=== PATIENT | female | born 1975 | race Caucasian/White ===

== ENCOUNTER 2017-03-24 02:44 | Observation (INO) | payer MEDICAID ==
[2017-03-24] MEDS ORDERED: Albuterol-Ipratrop 3 mg / 0.5 (3 ml) UD INH STA (03:12)
[2017-03-24 03:44] LABS: MEAN CORPUSCULAR HEMOGLOBIN 17.9 pg (27.0-31.0); NRBC % 0.1 % (0.0-2.0)
--- NOTE | 2017-03-24 03:48 | C.PDOC ---
History Of Present Illness <Alejandra Spann - Last Filed: 03/24/17 07:00> <Chayo Contreras - Last Filed: 03/24/17 08:45> 41 year old female with PMhx of HTN presents to the ED for evaluation of SOB and coughing that started earlier today while she was at her home. Patient states that when she coughs she feels SOB and also feels chest tightness. Patient states her SOB worsens when she lays down. Patient denies fever, chills , nausea, vomit, diarrhea, weakness, numbness, headache. (Alejandra Spann) History Per: Patient History/Exam Limitations: no limitations Onset/Duration Of Symptoms: Days Current Symptoms Are (Timing): Still Present Location Of Pain: Throat Sick Contacts (Context): None Associated Symptoms: Cough Recent travel outside of the [place]: No Additional History Per: Patient <Alejandra Spann - Last Filed: 03/24/17 07:00> <Chayo Contreras - Last Filed: 03/24/17 08:45> Chief Complaint (Nursing): Cough, Cold, Congestion Past Medical History Reviewed: Historical Data, Nursing Documentation, Vital Signs - Medical History PMH: HTN Surgical History: No Surg Hx Family History: States: Unknown Family Hx - Social History Hx Tobacco Use: Yes Hx Alcohol Use: Yes Hx Substance Use: No - Immunization History Hx Tetanus Toxoid Vaccination: No Hx Influenza Vaccination: No Hx Pneumococcal Vaccination: No <Alejandra Spann - Last Filed: 03/24/17 07:00> Vital Signs: Last Vital Signs Temp 98.4 F 03/24/17 08:19 Pulse 84 03/24/17 08:18 Resp 18 03/24/17 08:18 BP 185/89 H 03/24/17 08:18 Pulse Ox 99 03/24/17 08:18 Review Of Systems Constitutional: Negative for: Fever, Chills Cardiovascular: Positive for: Chest Pain. Negative for: Palpitations Respiratory: Positive for: Shortness of Breath. Negative for: Cough Gastrointestinal: Negative for: Nausea, Vomiting, Abdominal Pain Musculoskeletal: Negative for: Back Pain Skin: Negative for: Rash Neurological: Negative for: Weakness, Numbness <Alejandra Spann - Last Filed: 03/24/17 07:00> Physical Exam - Physical Exam Appears: Non-toxic, No Acute Distress, Other (Obese) Skin: Normal Color, Warm, Dry Head: Atraumatic, Normacephalic Eye(s): bilateral: Normal Inspection Nose: No Discharge, No Deformity Oral Mucosa: Moist Neck: Normal ROM, Supple Chest: Symmetrical Cardiovascular: Rhythm Regular, No Murmur Respiratory: Normal Breath Sounds, No Rales, No Rhonchi, No Wheezing Gastrointestinal/Abdominal: Soft, No Tenderness, No Guarding, No Rebound Extremity: Normal ROM, No Tenderness, Capillary Refill (< 2 seconds), No Deformity, No Swelling Pulses: Left Dorsalis Pedis: Normal, Right Dorsalis Pedis: Normal Neurological/Psych: Oriented x3, Normal Speech, Normal Cognition <Alejandra Spann - Last Filed: 03/24/17 07:00> ED Course And Treatment - Laboratory Results Result Diagrams: 03/24/17 03:38 03/24/17 03:38 ECG: Interpreted By Me, Viewed By Me ECG Rhythm: Sinus Rhythm Interpretation Of ECG: flipped Ts in lead V4 to V6 and also in lead I and in aVL Rate From EC O2 Sat by Pulse Oximetry: 95 (On RA) Pulse Ox Interpretation: Normal - Radiology CXR: Interpreted by Me, Viewed By Me CXR Interpretation: Yes: Cardiomegaly, Other (increased vascular marking suggestive of CHF). No: Infiltrates <Alejandra Spann - Last Filed: 03/24/17 07:00> - Laboratory Results Result Diagrams: 03/24/17 03:38 03/24/17 03:38 <Chayo Contreras - Last Filed: 03/24/17 08:45> Progress <Alejandra Spann - Last Filed: 03/24/17 07:00> - Data Reviewed Data Reviewed: Lab, Diagnostic imaging, EKG, Old records <Chayo Contreras - Last Filed: 03/24/17 08:45> - Re-Evaluation Re-evaluation Note: 03/24/17 08:43 APPEARS COMFORTABLE NARD. PS FEELS BETTER S/P LASIX. PS NEW ONSET ORTHOPNEA X 2 WEEKS. PMD @ [facility] D/W DR Puja [facility]LE TURNER WILL ADMIT (Chayo Contreras) Medical Decision Making <Alejandra Spann - Last Filed: 03/24/17 07:00> <Chayo Contreras - Last Filed: 03/24/17 08:45> Medical Decision Making: Impression: SOB Plan: * EKG * CXR * Labs * Duoneb 3ml INH Pt with morbid obesity now with acute onset of SOB.Pt has CXR,hx,labs sugg of mild component of CHF and may well have a pulmonary embolus.If CHF alone pt can likely go home but if VQ is positive would admit for further mgmt of both conditions.Pts body habitus precludes her use of the CT scanner (Alejandra Spann) Disposition <Alejandra Spann - Last Filed: 03/24/17 07:00> Counseled Patient/Family Regarding: Studies Performed, Diagnosis - Disposition Disposition Time: 08:44 - POA Present On Arrival: Poor Glycemic Control <Chayo Contreras - Last Filed: 03/24/17 08:45> - Disposition Disposition: HOSPITALIZED Condition: STABLE Forms: [facility] (Emirati) - Clinical Impression Clinical Impression: New onset of congestive heart failure - Scribe Statement The provider has reviewed the documentation as recorded by the Scribe <Alejandra Spann - Last Filed: 03/24/17 07:00> <Chayo Contreras - Last Filed: 03/24/17 08:45> - Scribe Statement Jorge Santacruz All medical record entries made by the Scribe were at my direction and personally dictated by me. I have reviewed the chart and agree that the record accurately reflects my personal performance of the history, physical exam, medical decision making, and the department course for this patient. I have also personally directed, reviewed, and agree with the discharge instructions and disposition. (Alejandra Spann) Decision To Admit <Alejandra Spann - Last Filed: 03/24/17 07:00> - Pt Status Changed To: Hospital Disposition Of: Observation - . Bed Request Type: Telemetry Admitting Physician: Vinay Delvalle <hCayo Contreras - Last Filed: 03/24/17 08:45> - . Patient Diagnosis: New onset of congestive heart failure
[2017-03-24 03:51] LABS: BASO # 0.1 K/uL (0.0-0.2); BASO % 0.6 % (0.0-2.0); EOS # 0.8 K/uL (0.0-0.7); LYMPH % 16.9 % (20.0-40.0); MEAN CELL VOLUME 60.1 fL (81.0-99.0); MEAN CORPUSCULAR HGB CONC 29.8 g/dL (33.0-37.0); MEAN PLATELET VOLUME 8.7 fL (7.2-11.7); MONO # 0.7 K/uL (0.0-0.8); MONO % 5.7 % (0.0-10.0); NEUT # 8.4 K/uL (1.8-7.0); NEUT % 69.8 % (50.0-75.0); RBC 4.45 Mil/uL (3.80-5.20); RED CELL DISTRIBUTION WIDTH 20.6 % (11.5-14.5); WHITE BLOOD COUNT 12.1 K/uL (4.8-10.8)
[2017-03-24 03:55] LABS: ALB/GLOB RATIO 1.1 (1.0-2.1); ALBUMIN 3.8 g/dL (3.5-5.0); ALT/SGPT 28 U/L (9-52); AST/SGOT 24 U/L (14-36); BLOOD UREA NITROGEN 16 mg/dL (7-17); CALCIUM 8.8 mg/dl (8.6-10.4); GFR AFRICAN-AMERICAN > 60; GFR NON-AFRICAN AMERICAN > 60
[2017-03-24] MEDS ORDERED: Potassium Chloride 20 mEq/15 ml LIQ UD PO STA (03:59)
[2017-03-24 04:08] LABS: B-TYPE NATRIURETIC PEPTIDE 1110 pg/mL (0-450)
[2017-03-24] MEDS ORDERED: Potassium Chloride 20 mEq/15 ml LIQ UD ONE (04:14)
--- NOTE | 2017-03-24 08:15 | NM ---
EXAM: NM Lung Perfusion and Ventilation Scan CLINICAL HISTORY: 41 years old, female; Signs and symptoms; Shortness of breath; Additional info: R/O pe TECHNIQUE: Nuclear Medicine ventilation and perfusion images of the lungs were obtained in multiple projections following inhalation of and injection of Tc99m MAA. Radiopharmaceuticals: Xenon 133 18 mCi and 4 mCi of technetium 99m MAA were administered. COMPARISON: No relevant prior studies available. FINDINGS: Ventilation: There is bilateral air trapping on the ventilation images. Perfusion: Unremarkable. No perfusion defects. IMPRESSION: Low probability for pulmonary embolus.
--- NOTE | 2017-03-24 10:20 | RAD ---
HISTORY: sob COMPARISON: No prior. FINDINGS: LUNGS: Suboptimal study due to patient's body habitus and portable technique. Possible mild pulmonary vascular congestion. PLEURA: No significant pleural effusion identified, no pneumothorax apparent. CARDIOVASCULAR: Normal. OSSEOUS STRUCTURES: No significant abnormalities. VISUALIZED UPPER ABDOMEN: Normal. OTHER FINDINGS: None. IMPRESSION: Suboptimal study due to patient's body habitus and portable technique. Possible mild pulmonary vascular congestion.
--- NOTE | 2017-03-24 17:10 | CP.PCM.CON ---
History of Present Illness - History of Present Illness History of Present Illness: 41 year old female with a history of menorrhagia and chronic anemia, admitted with cough and shortness of breath. The patient notes to chronic menorrhagia and passing vaginal blood clots. She does follow with a HAND FLESHER but notes her menorrhagia has been difficult to control. She does feel fatigued and has dyspnea with stairs. She denies fevers and chills. Past medical history: Menorrhagia, anemia Past surgical history: Cholecystectomy, Family history: Denies hematologic and oncologic problems Social history: Smokes 5 cigarettes daily, denies alcohol and illicit drug use. Allergies: NKDA Review of systems: All remaining review of systems including HEENT, cardiovascular, respiratory, gastrointestinal, genitourinary, musculoskeletal, dermatologic, neurologic, and psychiatric are negative unless mentioned in the HPI. Past Patient History - Past Social History Smoking Status: Light Smoker < 10 Cigarettes Daily - CARDIAC Hx Hypertension: Yes - PSYCHIATRIC Hx Substance Use: No - SURGICAL HISTORY Hx Section: Yes (X2) - ANESTHESIA Hx Anesthesia: Yes Hx Anesthesia Reactions: No Meds Allergies/Adverse Reactions: Allergies Allergy/AdvReac Type Severity Reaction Status Date / Time shrimp Allergy Verified 03/24/17 11:20 - Medications Medications: Current Medications Amlodipine Besylate (Norvasc) 5 mg PO DAILY [facility] Ferric Sodium Gluconate Complex (Ferrlecit) 125 mg IVPB DAILY [facility] Stop: 03/31/17 16:16 Furosemide (Lasix) 40 mg IVP DAILY [facility] Potassium Chloride (Potassium Chloride 10 Meq/100 Ml) 10 meq in 100 mls @ 100 mls/hr IVPB ONCE ONE Stop: 03/24/17 17:25 Lisinopril (Zestril) 10 mg PO DAILY [facility] Pneumococcal Polyvalent Vaccine (Pneumovax 23 Vaccine) 0.5 ml IM .ONCE ONE Stop: 03/25/17 10:01 Physical Exam - Head Exam Head Exam: ATRAUMATIC - Eye Exam Eye Exam: Normal appearance - ENT Exam ENT Exam: Mucous Membranes Dry - Respiratory Exam Respiratory Exam: NORMAL BREATHING PATTERN - Cardiovascular Exam Cardiovascular Exam: +S1, +S2 - GI/Abdominal Exam GI & Abdominal Exam: Normal Bowel Sounds Results - Vital Signs Recent Vital Signs: Last Vital Signs Temp 98.3 F 03/24/17 16:00 Pulse 93 H 03/24/17 16:00 Resp 20 03/24/17 16:00 BP 207/122 H 03/24/17 16:00 Pulse Ox 95 03/24/17 16:00 - Labs Result Diagrams: 03/24/17 03:38 03/24/17 03:38 Labs: Laboratory Results - last 24 hr 03/24/17 03/24/17 03/24/17 03:38 03:38 03:38 WBC 12.1 H RBC 4.45 Hgb 8.0 L Hct 26.8 L MCV 60.1 L MCH 17.9 L MCHC 29.8 L RDW 20.6 H Plt Count 424 H MPV 8.7 Neut % (Auto) 69.8 Lymph % (Auto) 16.9 L [place] % (Auto) 5.7 Eos % (Auto) 7.0 H Baso % (Auto) 0.6 Neut # (Auto) 8.4 H Lymph # (Auto) 2.0 [place] # (Auto) 0.7 Eos # (Auto) 0.8 H Baso # (Auto) 0.1 Differential Comment D-Dimer, Quantitative 2201 H Sodium 139 Potassium 2.9 L Chloride 103 Carbon Dioxide 27 Anion Gap 12 BUN 16 Creatinine 1.0 Est GFR ( Amer) > 60 Est GFR (Non-Af Amer) > 60 Random Glucose 122 H Calcium 8.8 Total Bilirubin 0.4 AST 24 ALT 28 Alkaline Phosphatase 63 Troponin I 0.0400 NT-Pro-B Natriuret Pep 1110 H Total Protein 7.1 Albumin 3.8 Globulin 3.3 Albumin/Globulin Ratio 1.1 Assessment & Plan (1) Anemia Assessment and Plan: will check ferritin, retic count, b12, folate likely iron deficiency given menorrhagia will start empirically on IV iron Thank you for this interesting consult. Status: Acute
[2017-03-24 17:25] LABS: ALB/GLOB RATIO 1.1 (1.0-2.1); ALBUMIN 3.9 g/dL (3.5-5.0); ALT/SGPT 25 U/L (9-52); AST/SGOT 26 U/L (14-36); BLOOD UREA NITROGEN 16 mg/dL (7-17); CALCIUM 9.3 mg/dl (8.6-10.4); GFR AFRICAN-AMERICAN > 60; GFR NON-AFRICAN AMERICAN > 60
--- NOTE | 2017-03-24 18:10 | CP.PCM.HP ---
Past Patient History - Past Social History Smoking Status: Light Smoker < 10 Cigarettes Daily - CARDIAC Hx Hypertension: Yes - PSYCHIATRIC Hx Substance Use: No - SURGICAL HISTORY Hx Section: Yes (X2) - ANESTHESIA Hx Anesthesia: Yes Hx Anesthesia Reactions: No Meds Allergies/Adverse Reactions: Allergies Allergy/AdvReac Type Severity Reaction Status Date / Time shrimp Allergy Verified 03/24/17 11:20 Physical Exam - Constitutional Appears: Well - Head Exam Head Exam: ATRAUMATIC, NORMAL INSPECTION, NORMOCEPHALIC - Eye Exam Eye Exam: EOMI, Normal appearance, PERRL Pupil Exam: NORMAL ACCOMODATION, PERRL - ENT Exam ENT Exam: Mucous Membranes Moist, Normal Exam - Neck Exam Neck exam: Positive for: Normal Inspection - Respiratory Exam Respiratory Exam: Decreased Breath Sounds - Cardiovascular Exam Cardiovascular Exam: REGULAR RHYTHM, +S1, +S2 - GI/Abdominal Exam GI & Abdominal Exam: Diminished Bowel Sounds, Soft - Rectal Exam Rectal Exam: Deferred Results - Vital Signs Recent Vital Signs: Last Vital Signs Temp 98.3 F 03/24/17 16:00 Pulse 93 H 03/24/17 16:00 Resp 20 03/24/17 16:00 BP 207/122 H 03/24/17 16:00 Pulse Ox 95 03/24/17 16:00 - Labs Result Diagrams: 03/24/17 03:38 03/24/17 16:37 Labs: Laboratory Results - last 24 hr 03/24/17 03/24/17 03/24/17 03:38 03:38 03:38 WBC 12.1 H RBC 4.45 Hgb 8.0 L Hct 26.8 L MCV 60.1 L MCH 17.9 L MCHC 29.8 L RDW 20.6 H Plt Count 424 H MPV 8.7 Neut % (Auto) 69.8 Lymph % (Auto) 16.9 L [place] % (Auto) 5.7 Eos % (Auto) 7.0 H Baso % (Auto) 0.6 Neut # (Auto) 8.4 H Lymph # (Auto) 2.0 [place] # (Auto) 0.7 Eos # (Auto) 0.8 H Baso # (Auto) 0.1 Differential Comment D-Dimer, Quantitative 2201 H Sodium 139 Potassium 2.9 L Chloride 103 Carbon Dioxide 27 Anion Gap 12 BUN 16 Creatinine 1.0 Est GFR ( Amer) > 60 Est GFR (Non-Af Amer) > 60 Random Glucose 122 H Calcium 8.8 Total Bilirubin 0.4 AST 24 ALT 28 Alkaline Phosphatase 63 Troponin I 0.0400 NT-Pro-B Natriuret Pep 1110 H Total Protein 7.1 Albumin 3.8 Globulin 3.3 Albumin/Globulin Ratio 1.1 03/24/17 16:37 WBC RBC Hgb Hct MCV MCH MCHC RDW Plt Count MPV Neut % (Auto) Lymph % (Auto) [place] % (Auto) Eos % (Auto) Baso % (Auto) Neut # (Auto) Lymph # (Auto) [place] # (Auto) Eos # (Auto) Baso # (Auto) Differential Comment D-Dimer, Quantitative Sodium 140 Potassium 3.3 L Chloride 100 Carbon Dioxide 29 Anion Gap 13 BUN 16 Creatinine 1.0 Est GFR ( Amer) > 60 Est GFR (Non-Af Amer) > 60 Random Glucose 104 Calcium 9.3 Total Bilirubin 0.4 AST 26 ALT 25 Alkaline Phosphatase 67 Troponin I 0.0400 NT-Pro-B Natriuret Pep Total Protein 7.5 Albumin 3.9 Globulin 3.6 Albumin/Globulin Ratio 1.1
[2017-03-24] MEDS: Ferric Sodium Gluconat Complex 62.5 mg/5 ml Vial IVPB SCH (19:28)
[2017-03-24] MEDS ORDERED: Potassium Chloride 20 mEq ER Tab PO ONE (21:37)
[2017-03-24] MEDS ORDERED: Enoxaparin 30 mg Syringe SC SCH (22:00)
[2017-03-25 01:00] VITALS: O2SAT 97
[2017-03-25 08:54] LABS: BASO # 0.1 K/uL (0.0-0.2); BASO % 0.8 % (0.0-2.0); EOS # 0.9 K/uL (0.0-0.7); EOS % 8.7 % (0.0-4.0); HEMOGLOBIN 9.1 g/dL (11.0-16.0); LYMPH # 1.9 K/uL (1.0-4.3); LYMPH % 18.7 % (20.0-40.0); MEAN CORPUSCULAR HEMOGLOBIN 18.4 pg (27.0-31.0); MEAN CORPUSCULAR HGB CONC 30.6 g/dL (33.0-37.0); MEAN PLATELET VOLUME 8.8 fL (7.2-11.7); MONO # 0.6 K/uL (0.0-0.8); MONO % 6.5 % (0.0-10.0); NEUT # 6.5 K/uL (1.8-7.0); NEUT % 65.3 % (50.0-75.0); NRBC % 0.1 % (0.0-2.0); RBC 4.94 Mil/uL (3.80-5.20); RED CELL DISTRIBUTION WIDTH 20.7 % (11.5-14.5)
[2017-03-25 08:58] VITALS: RESP 18; TEMP 97.6
[2017-03-25 09:06] LABS: MEAN CELL VOLUME 60.2 fL (81.0-99.0)
[2017-03-25 09:09] LABS: ALBUMIN 3.9 g/dL (3.5-5.0); ALT/SGPT 26 U/L (9-52); AST/SGOT 27 U/L (14-36); BLOOD UREA NITROGEN 16 mg/dL (7-17); GFR AFRICAN-AMERICAN > 60; GFR NON-AFRICAN AMERICAN > 60
[2017-03-25] MEDS: Ferric Sodium Gluconat Complex 62.5 mg/5 ml Vial IVPB SCH (09:15)
[2017-03-25 09:49] LABS: FERRITIN 15.5 ng/mL
[2017-03-25] MEDS ORDERED: Pneumococcal 23-Valent Vaccine IM ONE ×2 (10:00→11:32)
[2017-03-25] MEDS ORDERED: Influenza Vaccine 60 mcg/0.5 mL SYR (4YR UP) IM ONE ×2 (10:00→11:32)
[2017-03-25] MEDS ORDERED: Potassium Chloride 20 mEq ER Tab PO ONE (11:00)
[2017-03-25 11:25] VITALS: BP 172/97
--- NOTE | 2017-03-25 14:00 | CP.PCM.CON ---
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 She denies angina with effort, palpitation, diaphoresis or syncope No prior CVA/[place] history PMHX/PSHX 1. HTN chronic labile 2. Smoking < 1/2 PPD 3. x2 4. Gall bladder Review of Systems - Review of Systems All systems: reviewed and no additional remarkable complaints except Past Patient History - Past Social History Smoking Status: Light Smoker < 10 Cigarettes Daily - CARDIAC Hx Hypertension: Yes - PSYCHIATRIC Hx Substance Use: No - SURGICAL HISTORY Hx Section: Yes (X2) - ANESTHESIA Hx Anesthesia: Yes Hx Anesthesia Reactions: No Meds Allergies/Adverse Reactions: Allergies Allergy/AdvReac Type Severity Reaction Status Date / Time shrimp Allergy Verified 03/24/17 11:20 - Medications Medications: Current Medications Acetaminophen (Tylenol 325mg Tab) 650 mg PO Q8 PRN PRN Reason: Pain, moderate (4-7) Last Admin: 03/25/17 11:35 Dose: 650 mg Amlodipine Besylate (Norvasc) 5 mg PO DAILY [facility] Last Admin: 03/25/17 09:16 Dose: 5 mg Ferric Sodium Gluconate Complex (Ferrlecit) 125 mg IVPB DAILY [facility] Stop: 03/31/17 16:16 Last Admin: 03/25/17 09:15 Dose: 125 mg Furosemide (Lasix) 40 mg IVP DAILY [facility] Last Admin: 03/25/17 09:16 Dose: 40 mg Hydralazine HCl (Apresoline) 50 mg PO Q8H [facility] Last Admin: 03/25/17 11:34 Dose: 50 mg Hydrochlorothiazide (Hydrodiuril) 25 mg PO DAILY [facility] Last Admin: 03/25/17 09:16 Dose: 25 mg Lisinopril (Zestril) 10 mg PO DAILY [facility] Last Admin: 03/25/17 09:16 Dose: 10 mg Physical Exam - Constitutional Appears: No Acute Distress - Head Exam Head Exam: ATRAUMATIC, NORMAL INSPECTION, NORMOCEPHALIC - Eye Exam Eye Exam: EOMI, Normal appearance - ENT Exam ENT Exam: Mucous Membranes Moist, Normal Oropharynx - Respiratory Exam Respiratory Exam: Clear to Auscultation Bilateral, NORMAL BREATHING PATTERN. absent: Rhonchi, Wheezes - Cardiovascular Exam Cardiovascular Exam: REGULAR RHYTHM, +S1, +S2. absent: +S4, Systolic Murmur - GI/Abdominal Exam GI & Abdominal Exam: Normal Bowel Sounds, Soft. absent: Tenderness - Extremities Exam Extremities exam: Positive for: normal inspection. Negative for: calf tenderness - Neurological Exam Neurological exam: Alert, Normal Gait, Oriented x3 - Psychiatric Exam Psychiatric exam: Normal Affect, Normal Mood - Skin Skin Exam: Normal Color, Warm Results - Vital Signs Recent Vital Signs: Last Vital Signs Temp 97.6 F 03/25/17 08:00 Pulse 86 03/25/17 11:25 Resp 18 03/25/17 08:00 BP 172/97 H 03/25/17 11:25 Pulse Ox 97 03/25/17 10:00 - Labs Result Diagrams: 03/25/17 08:34 03/25/17 08:34 Labs: Laboratory Results - last 24 hr 03/24/17 03/24/17 03/25/17 16:37 23:18 08:34 WBC 10.0 RBC 4.94 Hgb 9.1 L Hct 29.8 L MCV 60.2 L MCH 18.4 L MCHC 30.6 L RDW 20.7 H Plt Count 475 H MPV 8.8 Neut % (Auto) 65.3 Lymph % (Auto) 18.7 L [place] % (Auto) 6.5 Eos % (Auto) 8.7 H Baso % (Auto) 0.8 Neut # (Auto) 6.5 Lymph # (Auto) 1.9 [place] # (Auto) 0.6 Eos # (Auto) 0.9 H Baso # (Auto) 0.1 Differential Comment Retic Count Sodium 140 Potassium 3.3 L Chloride 100 Carbon Dioxide 29 Anion Gap 13 BUN 16 Creatinine 1.0 Est GFR ( Amer) > 60 Est GFR (Non-Af Amer) > 60 Random Glucose 104 Calcium 9.3 Ferritin Total Bilirubin 0.4 AST 26 ALT 25 Alkaline Phosphatase 67 Troponin I 0.0400 0.0520 Total Protein 7.5 Albumin 3.9 Globulin 3.6 Albumin/Globulin Ratio 1.1 Vitamin B12 Folate 03/25/17 03/25/17 08:34 08:34 WBC RBC Hgb Hct MCV MCH MCHC RDW Plt Count MPV Neut % (Auto) Lymph % (Auto) [place] % (Auto) Eos % (Auto) Baso % (Auto) Neut # (Auto) Lymph # (Auto) [place] # (Auto) Eos # (Auto) Baso # (Auto) Differential Comment Retic Count 2.2 H Sodium 138 Potassium 3.5 L Chloride 101 Carbon Dioxide 28 Anion Gap 13 BUN 16 Creatinine 0.9 Est GFR ( Amer) > 60 Est GFR (Non-Af Amer) > 60 Random Glucose 103 Calcium 9.0 Ferritin 15.5 Total Bilirubin 0.4 AST 27 ALT 26 Alkaline Phosphatase 75 Troponin I Total Protein 7.7 Albumin 3.9 Globulin 3.8 Albumin/Globulin Ratio 1.0 Vitamin B12 394 Folate 9.0 - EKG Data EKG Interpreted by: Myself EKG shows normal: Sinus rhythm (non-specific lateral ST/T changes, BDLN LVH, poor r-wave progression) Assessment & Plan - Assessment and Plan (Free Text) Assessment: 1. SOB and Chest pain 2. Anemia 3. Labile HTN 4. Obesity- morbid --> Sx;s are atypical and non cardiac, possible GERD/Reflux and underlying CLEMENTINE - [place] ruled out - V/Q low probability - Exam: negative for acute CHF or LE edema - HTN is uncontrolled Suggest continue Rx as below: Amlodipine Besylate (Norvasc) 5 mg PO DAILY [facility] Hydralazine HCl (Apresoline) 50 mg PO Q8H [facility] Hydrochlorothiazide (Hydrodiuril) 25 mg PO DAILY [facility] Lisinopril (Zestril) 10 mg PO DAILY [facility] lisinopril to 20 daily d/c IV lasix add metoprolol 50 daily d/c planning with outpatient f/u for echo and continued cardiac risk stratification and RX smoking cessation counseling.
--- NOTE | 2017-03-25 14:02 | CP.PCM.PN ---
Subjective - Date & Time of Evaluation Date of Evaluation: 03/25/17 Time of Evaluation: 14:20 - Subjective Subjective: clinically same Objective - Vital Signs/Intake and Output Vital Signs (last 24 hours): Temp Pulse Resp BP Pulse Ox 97.6 F 86 18 172/97 H 97 03/25/17 08:00 03/25/17 11:25 03/25/17 08:00 03/25/17 11:25 03/25/17 10:00 Intake and Output: 03/25/17 03/25/17 06:59 18:59 Intake Total 610 Output Total 0 Balance 610 - Medications Medications: Current Medications Acetaminophen (Tylenol 325mg Tab) 650 mg PO Q8 PRN PRN Reason: Pain, moderate (4-7) Last Admin: 03/25/17 11:35 Dose: 650 mg Amlodipine Besylate (Norvasc) 5 mg PO DAILY [facility] Last Admin: 03/25/17 09:16 Dose: 5 mg Ferric Sodium Gluconate Complex (Ferrlecit) 125 mg IVPB DAILY [facility] Stop: 03/31/17 16:16 Last Admin: 03/25/17 09:15 Dose: 125 mg Furosemide (Lasix) 40 mg IVP DAILY [facility] Last Admin: 03/25/17 09:16 Dose: 40 mg Hydralazine HCl (Apresoline) 50 mg PO Q8H [facility] Last Admin: 03/25/17 11:34 Dose: 50 mg Hydrochlorothiazide (Hydrodiuril) 25 mg PO DAILY [facility] Last Admin: 03/25/17 09:16 Dose: 25 mg Lisinopril (Zestril) 10 mg PO DAILY [facility] Last Admin: 03/25/17 09:16 Dose: 10 mg - Labs Labs: 03/25/17 08:34 03/25/17 08:34 - Constitutional Appears: Well - Head Exam Head Exam: ATRAUMATIC, NORMAL INSPECTION, NORMOCEPHALIC - Eye Exam Eye Exam: EOMI, Normal appearance, PERRL Pupil Exam: NORMAL ACCOMODATION, PERRL - ENT Exam ENT Exam: Mucous Membranes Moist, Normal Exam - Neck Exam Neck Exam: Full ROM, Normal Inspection. absent: Lymphadenopathy - Respiratory Exam Respiratory Exam: Decreased Breath Sounds - Cardiovascular Exam Cardiovascular Exam: REGULAR RHYTHM, +S1, +S2 - GI/Abdominal Exam GI & Abdominal Exam: Soft, Diminished Bowel Sounds - Rectal Exam Rectal Exam: Deferred
[2017-03-25 14:10] VITALS: PULSE 112
--- NOTE | 2017-03-25 18:40 | CP.PCM.PN ---
Subjective - Date & Time of Evaluation Date of Evaluation: 03/25/17 Time of Evaluation: 11:00 - Subjective Subjective: Feeling better Objective - Vital Signs/Intake and Output Vital Signs (last 24 hours): Temp Pulse Resp BP Pulse Ox 97.6 F 112 H 18 172/97 H 97 03/25/17 08:00 03/25/17 12:18 03/25/17 08:00 03/25/17 11:25 03/25/17 10:00 Intake and Output: 03/25/17 03/25/17 06:59 18:59 Intake Total 610 Output Total 0 Balance 610 - Labs Labs: 03/25/17 08:34 03/25/17 08:34 - Head Exam Head Exam: ATRAUMATIC - Eye Exam Eye Exam: Normal appearance - ENT Exam ENT Exam: Mucous Membranes Dry - Respiratory Exam Respiratory Exam: NORMAL BREATHING PATTERN - Cardiovascular Exam Cardiovascular Exam: +S1, +S2 - GI/Abdominal Exam GI & Abdominal Exam: Normal Bowel Sounds Assessment and Plan (1) Anemia Assessment & Plan: iron deficiency from menorrhagia s/p IV iron H/H improved outpatient f/u Status: Acute
[2017-03-26] MEDS ORDERED: Metoprolol Succinate 50 mg XL Tab PO SCH (10:00)
[2017-03-26 13:13] LABS: MCH 18.1 pg (27.0-33.0); MCV 62.4 fL (80.0-100.0)
--- NOTE | 2017-03-26 22:41 | CARD ---
APPROVED REPORT EKG Measurement Heart [id number] <Conclusion> Normal sinus rhythm Poor R wave progression. Nonspecific ST/T abnormality. Prolonged QT Abnormal ECG
[2017-03-27 15:32] LABS: HEMOGLOBIN A 97.4 Percent (>96.0); HEMOGLOBIN A2 1.6 Percent (1.8-3.5)
== END 2017-03-25 15:20 | disposition home or self-care (01) ==
LOC: C.ER 02:44 → C.9E 08:45 → C.6T 12:41
PROVIDERS: ADMIT Internal Medicine Nephrology; ATTEND Internal Medicine Nephrology
DX: D50.9 Iron deficiency anemia, unspecified (principal); I11.0 Hypertensive heart disease with heart failure; F17.210 Nicotine dependence, cigarettes, uncomplicated; E66.01 Morbid (severe) obesity due to excess calories; Z68.43 Body mass index [BMI] 50.0-59.9, adult; I50.9 Heart failure, unspecified; N92.0 Excessive and frequent menstruation with regular cycle; K21.9 Gastro-esophageal reflux disease without esophagitis
CPT/HCPCS: 36415; 71045; 78582; 80053; 82607; 82728; 82746; 83021; 83880; 84484; 85014; 85018; 85025; 85041; 85044; 85378; 90471; 90674; 90732; 93005; 94640; 96374; 99285; A9524; A9558; G0378; J0360; J1940; J2916; J3480

== ENCOUNTER 2017-07-19 00:24 | Emergency (ER) | payer MEDICAID ==
[2017-07-19 00:49] VITALS: TEMP 98.3; O2SAT 97
[2017-07-19 02:42] VITALS: BP 165/90; PULSE 78; RESP 20
--- NOTE | 2017-07-19 02:46 | C.PDOC ---
History Of Present Illness 41 year old female presents to the ER with a complaint of sudden onset of cough while laying down earlier tonight. Patient states she had a coughing fit for a few minutes and felt like she could not catch her breath, she become concerned and called 911. 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 Denies SOB, chest pain, fever, or sick contact. Time Seen by Provider: 07/19/17 01:02 Chief Complaint (Nursing): Cough, Cold, Congestion History Per: Patient History/Exam Limitations: no limitations Onset/Duration Of Symptoms: Hrs Current Symptoms Are (Timing): Better Location Of Pain: None Sick Contacts (Context): None Associated Symptoms: Cough. denies: Fever, Other (Chest pain, SOB) Ear Symptoms: Bilateral: None Recent travel outside of the [place]: No Past Medical History Reviewed: Historical Data, Nursing Documentation, Vital Signs Vital Signs: Last Vital Signs Temp 98.3 F 07/19/17 02:41 Pulse 78 07/19/17 02:41 Resp 20 07/19/17 02:41 BP 165/90 H 07/19/17 02:41 Pulse Ox 97 07/19/17 03:06 - Medical History PMH: HTN Family History: States: Unknown Family Hx - Social History Hx Tobacco Use: Yes Hx Alcohol Use: Yes Hx Substance Use: No - Immunization History Hx Tetanus Toxoid Vaccination: No Hx Influenza Vaccination: No Hx Pneumococcal Vaccination: No Review Of Systems Constitutional: Negative for: Fever Cardiovascular: Negative for: Chest Pain Respiratory: Positive for: Cough. Negative for: Shortness of Breath Gastrointestinal: Negative for: Nausea, Vomiting Physical Exam - Physical Exam Appears: Non-toxic, Other (Morbidly obese) Skin: Normal Color, Warm, Dry Head: Atraumatic, Normacephalic Eye(s): bilateral: Normal Inspection Oral Mucosa: Moist Throat: Normal, No Erythema, No Exudate, No Other (swelling) Neck: Normal, Supple Chest: Symmetrical, No Tenderness Cardiovascular: Rhythm Regular Respiratory: Normal Breath Sounds, No Rales, No Rhonchi, No Wheezing Neurological/Psych: Oriented x3, Normal Speech ED Course And Treatment O2 Sat by Pulse Oximetry: 97 (Room air) Pulse Ox Interpretation: Normal - Radiology CXR: Interpreted by Me, Viewed By Me CXR Interpretation: Yes: No Acute Disease, Cardiomegaly, Other (Poor inspiration ). No: Infiltrates Progress Note: CXR ordered, results were negative. Patient is resting comfortably in the ER in no acute respiratory distress, pulse ox is 100, vitals are stable, will discharge home with instructions to follow up with PMD or return if symptoms worsen. 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 - Scribe Statement The provider has reviewed the documentation as recorded by the Scribe Yobani Benites All medical record entries made by the Scribe were at my direction and personally dictated by me. I have reviewed the chart and agree that the record accurately reflects my personal performance of the history, physical exam, medical decision making, and the department course for this patient. I have also personally directed, reviewed, and agree with the discharge instructions and disposition.
--- NOTE | 2017-07-19 11:46 | RAD ---
HISTORY: cough COMPARISON: Portable chest 03/24/2017. TECHNIQUE: Chest PA and lateral FINDINGS: LUNGS: Obese body habitus limits penetration once again. No definitive interval infiltrate bilaterally. PLEURA: No significant pleural effusion identified. No pneumothorax apparent. CARDIOVASCULAR: Cardiomegaly appears stable. No definitive pulmonary vascular congestion. OSSEOUS STRUCTURES: No significant abnormalities. VISUALIZED UPPER ABDOMEN: Normal. OTHER FINDINGS: None. IMPRESSION: Stable cardiomegaly. No definitive pulmonary vascular congestion or infiltrate bilaterally.
== END 2017-07-19 03:03 | disposition home or self-care (01) ==
LOC: C.ER 00:24
DX: R05 Cough (principal)

== ENCOUNTER 2017-10-19 22:24 | Emergency (ER) | payer MEDICAID ==
--- NOTE | 2017-10-19 22:49 | C.PDOC ---
History Of Present Illness Patient with a Hx of morbid obesity presents to the ER with a complaint of cough for the past 2 weeks. She is currently speaking in complete sentences. Denies fever or chills. Time Seen by Provider: 10/19/17 22:49 Chief Complaint (Nursing): Shortness Of Breath History Per: Patient History/Exam Limitations: no limitations Onset/Duration Of Symptoms: Days Current Symptoms Are (Timing): Still Present Initiating Event: Other (Not known) Current Respiratory Medications: None Severity: Mild Pain Scale Rating Of: 3 Associated Symptoms: Other (Cough). denies: Fever, Chills Recent travel outside of the [place]: No Past Medical History Reviewed: Historical Data, Nursing Documentation, Vital Signs Vital Signs: Last Vital Signs Temp 98.5 F 10/19/17 22:38 Pulse 100 H 10/20/17 01:40 Resp 18 10/20/17 01:40 BP 194/89 H 10/20/17 01:40 Pulse Ox 95 10/20/17 01:40 - Medical History PMH: HTN Surgical History: Cholecystectomy Family History: States: No Known Family Hx - Social History Hx Tobacco Use: Yes Hx Alcohol Use: No Hx Substance Use: No - Immunization History Hx Tetanus Toxoid Vaccination: No Hx Influenza Vaccination: No Hx Pneumococcal Vaccination: No Review Of Systems Constitutional: Negative for: Fever, Chills Cardiovascular: Negative for: Chest Pain, Palpitations Respiratory: Positive for: Cough Gastrointestinal: Negative for: Nausea, Vomiting Neurological: Negative for: Weakness, Numbness Physical Exam - Physical Exam Appears: Non-toxic, Other (Morbidly obese) Skin: Warm, Dry Head: Normacephalic Oral Mucosa: Moist Chest: Symmetrical, No Tenderness Cardiovascular: Rhythm Regular Respiratory: Decreased Breath Sounds (Most likely due to body habitus), No Rales , Rhonchi, No Wheezing Gastrointestinal/Abdominal: Soft, No Tenderness Back: No CVA Tenderness Neurological/Psych: Oriented x3 ED Course And Treatment - Laboratory Results Result Diagrams: 10/19/17 23:21 10/19/17 23:21 O2 Sat by Pulse Oximetry: 97 (Room air) Pulse Ox Interpretation: Normal Progress Note: Blood work and urinalysis ordered. Duoneb nebulizer administered. Reevaluation Time: 02:08 Reassessment Condition: Improved Disposition Counseled Patient/Family Regarding: Studies Performed, Diagnosis, Need For Followup, Rx Given, Smoking Cessation - Disposition Referrals: Gretchen Crandall MD [Medical Doctor] - Disposition: HOME/ ROUTINE Disposition Time: 22:49 Condition: FAIR Additional Instructions: Please return if symptoms recur Prescriptions: Albuterol HFA [Ventolin HFA 90 mcg/actuation (8 g)] 2 puff IH [id number] #1 puff Azithromycin [Zithromax Tri-Eric] 500 mg PO DAILY #3 tab Instructions: Asthma, Adult (DC), Obstructive Sleep Apnea, Adult (DC) Forms: [employer] (Upper Sorbian) - Clinical Impression Clinical Impression: Dyspnea, Asthma exacerbation - 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 - Scribe Statement The provider has reviewed the documentation as recorded by the Scribe Yobani Benites All medical record entries made by the Scribe were at my direction and personally dictated by me. I have reviewed the chart and agree that the record accurately reflects my personal performance of the history, physical exam, medical decision making, and the department course for this patient. I have also personally directed, reviewed, and agree with the discharge instructions and disposition.
[2017-10-19 23:24] LABS: BASO # 0.1 K/uL (0.0-0.2); BASO % 0.9 % (0.0-2.0); EOS # 1.1 K/uL (0.0-0.7); EOS % 8.8 % (0.0-4.0); HEMOGLOBIN 7.7 g/dL (11.0-16.0); LYMPH % 16.4 % (20.0-40.0); MEAN CORPUSCULAR HGB CONC 30.7 g/dL (33.0-37.0); MEAN PLATELET VOLUME 8.8 fL (7.2-11.7); MONO # 0.7 K/uL (0.0-0.8); NEUT # 8.2 K/uL (1.8-7.0); NEUT % 67.9 % (50.0-75.0); NRBC % 0.1 % (0.0-2.0); RBC 4.06 Mil/uL (3.80-5.20); RED CELL DISTRIBUTION WIDTH 19.1 % (11.5-14.5); WHITE BLOOD COUNT 12.1 K/uL (4.8-10.8)
[2017-10-19 23:25] LABS: MEAN CELL VOLUME 61.9 fL (81.0-99.0)
[2017-10-19] MEDS ORDERED: Albuterol-Ipratrop 3 mg / 0.5 (3 ml) UD ONE (23:28)
[2017-10-19 23:39] LABS: ALB/GLOB RATIO 1.3 (1.0-2.1); ALBUMIN 3.9 g/dL (3.5-5.0); ALT/SGPT 31 U/L (9-52); AST/SGOT 25 U/L (14-36); BLOOD UREA NITROGEN 16 mg/dL (7-17); CALCIUM 8.8 mg/dl (8.6-10.4); GFR NON-AFRICAN AMERICAN 55
[2017-10-19 23:39] LABS: VENOUS BLOOD GAS BASE EXCESS -1.1 mmol/L (0.0-2.0); VENOUS BLOOD GAS PCO2 45 mmHg (40-60); VENOUS BLOOD GAS PO2 32 mm/Hg (30-55); VENOUS BLOOD PH 7.35 (7.32-7.43)
[2017-10-19] MEDS: Albuterol-Ipratrop 3 mg / 0.5 (3 ml) UD IH SCH (23:39)
[2017-10-20 01:44] VITALS: BP 194/89; PULSE 100; RESP 18
[2017-10-20 01:56] LABS: SQUAMOUS EPITHIAL 16 /hpf (0-5); URINE BILIRUBIN NEGATIVE (NEGATIVE); URINE BLOOD 2+ (NEGATIVE); URINE CLARITY Hazy (Clear); URINE COLOR Yellow (YELLOW); URINE GLUCOSE (UA) NORMAL (Normal); URINE LEUKOCYTE ESTERASE 1+ Leu/uL (Negative); URINE PROTEIN 2+ mg/dL (NEGATIVE); URINE UROBILINOGEN NORMAL mg/dL (0.2-1.0)
[2017-10-20 02:11] VITALS: O2SAT 97
[2017-10-20 02:12] LABS: BARBITURATES, UR NEGATIVE (NEGATIVE); BENZODIAZEPINES, UR NEGATIVE (NEGATIVE); OPIATES, UR NEGATIVE (NEGATIVE); PHENCYCLIDINE, UR NEGATIVE (NEGATIVE)
[2017-10-20 02:26] VITALS: TEMP 98.4
== END 2017-10-20 02:30 | disposition home or self-care (01) ==
LOC: C.ER 22:24
DX: J45.901 Unspecified asthma with (acute) exacerbation (principal); R06.00 Dyspnea, unspecified

== ENCOUNTER 2018-05-06 19:33 | Inpatient (IN) | payer MEDICAID ==
[2018-05-06] MEDS ORDERED: Aspirin 325 mg EC Tablets PO STA (19:55)
--- NOTE | 2018-05-06 19:55 | C.PDOC ---
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 She is speaking in complete sentences. On the monitor patient found to be in uncontrolled afib in the 130- 40s. Time Seen by Provider: 05/06/18 19:55 Chief Complaint (Nursing): Chest Pain History Per: Patient History/Exam Limitations: no limitations Onset/Duration Of Symptoms: Hrs Current Symptoms Are (Timing): Still Present Severity: Moderate Pain Scale Rating Of: 4 Quality: Dull, Tightness Associated Symptoms: denies: Nausea, Dyspnea, Diaphoresis, Syncope Modifying Factors: None Exacerbating Factors: None Alleviating Factors: None Recent travel outside of the [place]: No Additional History Per: Patient Past Medical History Reviewed: Historical Data, Nursing Documentation, Vital Signs Vital Signs: Last Vital Signs Temp 98.5 F 05/06/18 19:50 Pulse 144 H 05/06/18 19:50 Resp 20 05/06/18 19:50 BP 183/134 H 05/06/18 19:50 Pulse Ox 99 05/06/18 19:50 - Medical History PMH: HTN, Hypercholesterolemia Surgical History: Cholecystectomy Family History: States: No Known Family Hx - Social History Hx Tobacco Use: Yes Hx Alcohol Use: No Hx Substance Use: No - Immunization History Hx Tetanus Toxoid Vaccination: No Hx Influenza Vaccination: No Hx Pneumococcal Vaccination: No Review Of Systems Constitutional: Negative for: Fever, Chills Eyes: Negative for: Vision Change Cardiovascular: Positive for: Chest Pain. Negative for: Palpitations Respiratory: Negative for: Cough, Shortness of Breath Gastrointestinal: Negative for: Nausea, Vomiting Genitourinary: Negative for: Dysuria Skin: Negative for: Rash Neurological: Negative for: Weakness, Numbness Psych: Negative for: Anxiety Physical Exam - Physical Exam Appears: Non-toxic, Other (Morbidly obese) Skin: Warm, Dry Head: Normacephalic Eye(s): bilateral: Normal Inspection Oral Mucosa: Moist Neck: Trachea Midline, Supple Chest: Symmetrical, No Tenderness Cardiovascular: Rhythm Irregular (Tachycardic) Respiratory: No Rales, No Rhonchi, No Wheezing Gastrointestinal/Abdominal: Soft, No Tenderness, Other (Morbidly obese) Back: No CVA Tenderness Extremity: Normal ROM Extremity: Bilateral: Atraumatic Pulses: Left Dorsalis Pedis: Normal, Right Dorsalis Pedis: Normal Neurological/Psych: Oriented x3 Gait: Steady ED Course And Treatment - Laboratory Results Result Diagrams: 05/06/18 19:59 05/06/18 19:59 ECG: Interpreted By Me, Viewed By Me ECG Rhythm: Atrial Fibrillation (137), Nonspecific Changes O2 Sat by Pulse Oximetry: 99 (Room air) Pulse Ox Interpretation: Normal - Radiology CXR: Interpreted by Me, Viewed By Me CXR Interpretation: No: Infiltrates, Fracture, Pnemothorax Progress Note: EKG, blood work, and urinalysis ordered. Cardizem and aspirin administered. Critical Care Time - Critical Care Note Total Time (in mins): 30 Documented critical care: time excludes all time spent performing seperately billable procedures. Disposition Discussed With : Vinay Delvalle Comment: accepted the pt on his service and took over the care at 9:30 PM Doctor Will See Patient In The: Hospital Counseled Patient/Family Regarding: Studies Performed, Diagnosis - Disposition Disposition: HOSPITALIZED Disposition Time: 19:55 Condition: FAIR Forms: [employer] (Ukrainian) - POA Present On Arrival: Poor Glycemic Control - Clinical Impression Clinical Impression: Chest pain, New onset a-fib, Morbid obesity - Scribe Statement The provider has reviewed the documentation as recorded by the Scribe Yobani Benites All medical record entries made by the Scribe were at my direction and personally dictated by me. I have reviewed the chart and agree that the record accurately reflects my personal performance of the history, physical exam, medical decision making, and the department course for this patient. I have also personally directed, reviewed, and agree with the discharge instructions and disposition. Decision To Admit - Pt Status Changed To: Hospital Disposition Of: Inpatient - Admit Certification Admit to Inpatient:: After my assessment, the patient will require hospital ization for at least two midnights. This is because of the severity of symptoms shown, intensity of services needed, and/or the medical risk in this patient being treated as an outpatient. - InPatient: Physician Admission Certification: I certify that this patient requires 2 or more midnights of care for the following reason:: After my assessment, the patient will require hospitalization for at least two midnights. This is because of the severity of symptoms shown, intensity of services needed, and/or the medical risk in this patient being treated as an outpatient. - . Bed Request Type: Telemetry Admitting Physician: Vinay Delvalle Patient Diagnosis: Chest pain, New onset a-fib, Morbid obesity
[2018-05-06 20:03] LABS: BASO # 0.1 K/uL (0.0-0.2); BASO % 1.2 % (0.0-2.0); EOS # 0.6 K/uL (0.0-0.7); EOS % 5.2 % (0.0-4.0); HEMOGLOBIN 9.5 g/dL (11.0-16.0); LYMPH # 2.6 K/uL (1.0-4.3); LYMPH % 22.2 % (20.0-40.0); MEAN CORPUSCULAR HEMOGLOBIN 18.3 pg (27.0-31.0); MEAN CORPUSCULAR HGB CONC 29.6 g/dL (33.0-37.0); MEAN PLATELET VOLUME 8.9 fL (7.2-11.7); MONO # 0.8 K/uL (0.0-0.8); MONO % 7.2 % (0.0-10.0); NEUT # 7.5 K/uL (1.8-7.0); NEUT % 64.2 % (50.0-75.0); RBC 5.21 Mil/uL (3.80-5.20); WHITE BLOOD COUNT 11.7 K/uL (4.8-10.8)
[2018-05-06 20:14] LABS: INR 1.1
[2018-05-06 20:21] LABS: ALB/GLOB RATIO 1.2 (1.0-2.1); ALBUMIN 4.5 g/dL (3.5-5.0); ALT/SGPT 8 U/L (9-52); AST/SGOT 25 U/L (14-36); BLOOD UREA NITROGEN 16 mg/dL (7-17); CALCIUM 9.7 mg/dl (8.6-10.4); GFR NON-AFRICAN AMERICAN > 60
[2018-05-06 20:32] LABS: B-TYPE NATRIURETIC PEPTIDE 205 pg/mL (0-450)
[2018-05-06 20:48] LABS: SQUAMOUS EPITHIAL 1 /hpf (0-5); URINE BILIRUBIN NEGATIVE (NEGATIVE); URINE BLOOD 2+ (NEGATIVE); URINE CLARITY Clear (Clear); URINE COLOR Colorless (YELLOW); URINE GLUCOSE (UA) NORMAL (Normal); URINE LEUKOCYTE ESTERASE NEG Leu/uL (Negative); URINE PROTEIN 1+ mg/dL (NEGATIVE); URINE UROBILINOGEN NORMAL mg/dL (0.2-1.0)
[2018-05-06 20:49] LABS: HCG,QUALITATIVE URINE NEGATIVE (NEGATIVE)
[2018-05-06] MEDS ORDERED: Enoxaparin 40 mg Syringe SC STA (21:29)
[2018-05-06] MEDS ORDERED: Enoxaparin 80 mg Syringe ONE (21:48)
[2018-05-07 01:20] LABS: CK-MB 2.13 ng/mL (0.0-3.38); TROPONIN I 0.108 ng/mL (0.00-0.120)
--- NOTE | 2018-05-07 08:19 | CP.PCM.HP ---
History of Present Illness - History of Present Illness History of Present Illness: 42-year-old female with history of hypertension hypercholesterolemia came in because of chest pain just started prior to arrival retrosternal with high ventricular rate which patient was in A. fib Patient denies any nausea vomiting denies any short of breath although patient feels mild chest discomfort with mild shortness of breath patient is saturations appear to be normal Eventually patient came to the emergency room Present on Admission - Present on Admission Any Indicators Present on Admission: No Past Patient History - Infectious Disease Hx of Infectious Diseases: None - Past Social History Smoking Status: Light Smoker < 10 Cigarettes Daily - CARDIAC Hx Hypercholesterolemia: Yes Hx Hypertension: Yes - MUSCULOSKELETAL/RHEUMATOLOGICAL Hx Falls: No - PSYCHIATRIC Hx Substance Use: No - SURGICAL HISTORY Hx Cholecystectomy: Yes - ANESTHESIA Hx Anesthesia: Yes Hx Anesthesia Reactions: No Meds Allergies/Adverse Reactions: Allergies Allergy/AdvReac Type Severity Reaction Status Date / Time No Known Allergies Allergy Verified 10/19/17 22:50 Physical Exam - Constitutional Appears: Well - Head Exam Head Exam: ATRAUMATIC, NORMAL INSPECTION, NORMOCEPHALIC - Eye Exam Eye Exam: EOMI, Normal appearance, PERRL Pupil Exam: NORMAL ACCOMODATION, PERRL - ENT Exam ENT Exam: Mucous Membranes Moist, Normal Exam - Neck Exam Neck exam: Positive for: Normal Inspection - Respiratory Exam Respiratory Exam: Decreased Breath Sounds - Cardiovascular Exam Cardiovascular Exam: REGULAR RHYTHM, +S1, +S2 - GI/Abdominal Exam GI & Abdominal Exam: Diminished Bowel Sounds, Soft - Rectal Exam Rectal Exam: Deferred Results - Vital Signs Recent Vital Signs: Last Vital Signs Temp 97.4 F L 05/07/18 07:00 Pulse 82 05/07/18 07:00 Resp 20 05/07/18 07:00 BP 120/78 05/07/18 07:00 Pulse Ox 95 05/07/18 07:00 - Labs Result Diagrams: 05/06/18 19:59 05/06/18 19:59 Labs: Laboratory Results - last 24 hr 05/06/18 05/06/18 05/06/18 19:59 19:59 19:59 WBC 11.7 H RBC 5.21 H Hgb 9.5 L Hct 32.3 L MCV 62.0 L MCH 18.3 L MCHC 29.6 L RDW 20.0 H Plt Count 523 H D MPV 8.9 Neut % (Auto) 64.2 Lymph % (Auto) 22.2 [place] % (Auto) 7.2 Eos % (Auto) 5.2 H Baso % (Auto) 1.2 Neut # (Auto) 7.5 H Lymph # (Auto) 2.6 [place] # (Auto) 0.8 Eos # (Auto) 0.6 Baso # (Auto) 0.1 Differential Comment PT 12.0 INR 1.1 APTT 31 Sodium 141 Potassium 4.0 Chloride 105 Carbon Dioxide 30 Anion Gap 10 BUN 16 Creatinine 1.0 Est GFR ( Amer) > 60 Est GFR (Non-Af Amer) > 60 Random Glucose 110 H D Calcium 9.7 Total Bilirubin 0.4 AST 25 ALT 8 L D Alkaline Phosphatase 83 Total Creatine Kinase CK-MB (Mass) Troponin I 0.0210 NT-Pro-B Natriuret Pep 205 Total Protein 8.3 Albumin 4.5 Globulin 3.8 Albumin/Globulin Ratio 1.2 TSH 3rd Generation Urine Color Urine Clarity Urine pH Ur Specific [place] Urine Protein Urine Glucose (UA) Urine Ketones Urine Blood Urine Nitrate Urine Bilirubin Urine Urobilinogen Ur Leukocyte Esterase Urine WBC (Auto) Urine RBC (Auto) Ur Squamous Epith Cells Urine HCG, Qual 05/06/18 05/06/18 05/07/18 20:30 21:40 00:50 WBC RBC Hgb Hct MCV MCH MCHC RDW Plt Count MPV Neut % (Auto) Lymph % (Auto) [place] % (Auto) Eos % (Auto) Baso % (Auto) Neut # (Auto) Lymph # (Auto) [place] # (Auto) Eos # (Auto) Baso # (Auto) Differential Comment PT INR APTT Sodium Potassium Chloride Carbon Dioxide Anion Gap BUN Creatinine Est GFR ( Amer) Est GFR (Non-Af Amer) Random Glucose Calcium Total Bilirubin AST ALT Alkaline Phosphatase Total Creatine Kinase 132 CK-MB (Mass) 2.13 Troponin I 0.1080 NT-Pro-B Natriuret Pep Total Protein Albumin Globulin Albumin/Globulin Ratio TSH 3rd Generation 1.45 Urine Color Colorless Urine Clarity Clear Urine pH 7.0 Ur Specific [place] 1.004 Urine Protein 1+ H Urine Glucose (UA) Normal Urine Ketones Negative Urine Blood 2+ H Urine Nitrate Negative Urine Bilirubin Negative Urine Urobilinogen Normal Ur Leukocyte Esterase Neg Urine WBC (Auto) 3 Urine RBC (Auto) 18 H Ur Squamous Epith Cells 1 Urine HCG, Qual Negative Assessment & Plan (1) Chest pain Status: Acute (2) Morbid obesity Status: Acute (3) New onset a-fib Status: Acute (4) Anemia Assessment and Plan: work up as out pt Status: Acute (5) Dyspnea Status: Acute (6) New onset of congestive heart failure Status: Chronic (7) Asymptomatic microscopic hematuria Status: Acute Comment: pt adv to get work up done as out pt. pt understood - Assessment and Plan (Free Text) Plan: chest x-ray no infiltrate EKG A. fib with high ventricular rate Hemoglobin is 9.5 Blood sugar is 110 Status post Cardizem and status post aspirin Troponin x2- TSH is 1.45 Blood in the urine patient's
--- NOTE | 2018-05-07 09:43 | RAD ---
Date of service: 05/06/2018 HISTORY: Chest pain COMPARISON: None available. TECHNIQUE: 1 view obtained. FINDINGS: LUNGS: Mild venous congestion. PLEURA: No significant pleural effusion identified, no pneumothorax apparent. CARDIOVASCULAR: No aortic atherosclerotic calcification present. Normal cardiac size. Mild venous congestion. OSSEOUS STRUCTURES: No significant abnormalities. VISUALIZED UPPER ABDOMEN: Normal. OTHER FINDINGS: None. IMPRESSION: Mild venous congestion.
[2018-05-07 09:48] LABS: CK-MB 3.29 ng/mL (0.0-3.38)
--- NOTE | 2018-05-07 10:10 | CP.PCM.PN ---
<[place] - Last Filed: 05/07/18 15:54> Subjective - Date & Time of Evaluation Date of Evaluation: 05/07/18 Time of Evaluation: 10:09 - Subjective Subjective: 42 year old female with a past medical histoyr of hypertension and hypercholesterolemia presents to the hospital reporting palpitations that begin prior to coming into the hospital. Patient states she was sitting down when she began to feel her heart race and also reported some dizziness in conjunction with the symptoms. She denies this happening in the past .Patient denies any recent fevers, chills, headaches, changes in vision, abdominal pain, syncopal episodes, or any other complaints. PMD:Dr. Crandall Medical history: htn, hypercholesterolemia Allergies: Denies Surgical history: Cholecystectomy Social history: 1/2 ppd x 5 years. Social drinker. Denies any illicit drugs. Cardiac history: Denies any previous stress test, echocardiogram or cardiac cat herization in the past. Objective - Vital Signs/Intake and Output Vital Signs (last 24 hours): Temp Pulse Resp BP Pulse Ox 97.4 F L 82 20 120/78 95 05/07/18 07:00 05/07/18 07:00 05/07/18 07:00 05/07/18 07:00 05/07/18 07:00 - Medications Medications: Current Medications Aspirin (Aspirin) 325 mg PO DAILY [facility] Last Admin: 05/07/18 09:02 Dose: 325 mg Carvedilol (Coreg) 6.25 mg PO BID [facility] Last Admin: 05/07/18 09:02 Dose: 6.25 mg Diltiazem HCl (Cardizem) 30 mg PO Q8 [facility] Last Admin: 05/07/18 05:27 Dose: 30 mg Hydralazine HCl (Apresoline) 25 mg PO TID [facility] Last Admin: 05/07/18 09:02 Dose: 25 mg Lisinopril (Zestril) 20 mg PO DAILY [facility] Last Admin: 05/07/18 09:02 Dose: 20 mg Rosuvastatin Calcium (Crestor) 2.5 mg PO HS [facility] - Labs Labs: 05/06/18 19:59 05/06/18 19:59 PT 12.0 SECONDS (9.7-12.2) 05/06/18 19:59 INR 1.1 04/01/19 19:59 APTT 31 SECONDS (21-34) 05/06/18 19:59 - Head Exam Head Exam: ATRAUMATIC, NORMAL INSPECTION - Eye Exam Eye Exam: EOMI, Normal appearance, PERRL Pupil Exam: NORMAL ACCOMODATION, PERRL. absent: Irregular, Unequal - ENT Exam ENT Exam: Mucous Membranes Moist, Normal Oropharynx - Respiratory Exam Respiratory Exam: Clear to Ausculation Bilateral, NORMAL BREATHING PATTERN. absent: Prolonged Expiratory Phase, Respiratory Distress - Cardiovascular Exam Cardiovascular Exam: REGULAR RHYTHM, RRR, +S1, +S2. absent: Gallop, Rubs - GI/Abdominal Exam GI & Abdominal Exam: Soft, Normal Bowel Sounds. absent: Hyperactive Bowel So unds - Extremities Exam Extremities Exam: Full ROM, Normal Inspection. absent: Joint Swelling, Pedal Edema - Back Exam Back Exam: NORMAL INSPECTION. absent: CVA tenderness (R), paraspinal tenderness - Neurological Exam Neurological Exam: Alert, Awake, CN II-XII Intact, Oriented x3 - Psychiatric Exam Psychiatric exam: Normal Affect, Normal Mood. absent: Depressed - Skin Skin Exam: Dry, Intact Assessment and Plan - Assessment and Plan (Free Text) Assessment: 42 year old female with a past medical histoyr of hypertension and hyperc holesterolemia presents to the hospital reporting palpitations that begin prior to coming into the hospital. Plan: New onset Atrial fibrillation CHADS-Vasc Score: 2 :Meets criteria for anticoagulation Lovenox 150mg STAT given in E.D. Echocardiogram ordered. Will f/u with results. Cardiology Dr. Licona consulted--> Help appreciated -Cardizem 30mg PO Q8 -Coreg 6.25 mg PO BID -Aspirin 325mg PO DAILY NSTEMI EKG on admission:afib @137bpm Nonspecific Changes EKG with elevated troponin : afib @81bpm -3rd Troponin Positive:.2790 -STAT PO Aspirin given -Cardiology consulted Dr. Licona--> Help appreciated Medications: Heparin Drip @12 units/hr Hypertension -Continue Hydralazine 25mg PO TID -Continue Lisinopril 20 mg PO DAILY Hypercholesterolemia -Continue Rosuvastatin 2.5mg PO HS PPX -GI ppx not indicated at this time. Dispo: Follow up with further cardiac recommendations from Dr. Licona. Plan discussed with Attending Dr. Valencia Worrell, PGY-2 <Vinay Delvalle S - Last Filed: 05/08/18 22:15> Objective - Vital Signs/Intake and Output Vital Signs (last 24 hours): Temp Pulse Resp BP Pulse Ox 97.8 F 75 20 120/68 96 05/08/18 16:00 05/08/18 16:04 05/08/18 16:00 05/08/18 21:25 05/08/18 16:00 - Medications Medications: Current Medications Carvedilol (Coreg) 6.25 mg PO BID [facility] Last Admin: 05/08/18 17:00 Dose: Not Given Diltiazem HCl (Cardizem) 30 mg PO Q8 [facility] Last Admin: 05/08/18 21:25 Dose: 30 mg Diltiazem HCl (Cardizem Cd) 120 mg PO DAILY [facility] Hydralazine HCl (Apresoline) 25 mg PO TID [facility] Last Admin: 05/08/18 17:00 Dose: Not Given Lisinopril (Zestril) 20 mg PO DAILY [facility] Last Admin: 05/08/18 10:00 Dose: Not Given Rivaroxaban (Xarelto) 20 mg PO DAILY [facility] Rosuvastatin Calcium (Crestor) 2.5 mg PO HS [facility] Last Admin: 05/08/18 21:26 Dose: 2.5 mg - Labs Labs: 05/08/18 03:29 05/08/18 03:29 PT 12.0 SECONDS (9.7-12.2) 05/06/18 19:59 INR 1.1 05/06/18 19:59 APTT 86 SECONDS (21-34) H D 05/08/18 03:29 Assessment and Plan (1) Chest pain Status: Acute (2) Morbid obesity Status: Acute (3) New onset a-fib Status: Acute (4) Anemia Status: Acute (5) Dyspnea Status: Acute (6) New onset of congestive heart failure Status: Chronic (7) Asymptomatic microscopic hematuria Status: Acute Attending/Attestation - Attestation I have personally seen and examined this patient.: Yes I have fully participated in the care of the patient.: Yes I have reviewed all pertinent clinical information, including history, physical exam and plan: Yes Notes (Text): 05/08/18 22:14 case seen and d.w staff and resident, concurred with finding and management..possible cath as thrid tropoin is postive
[2018-05-07 10:16] LABS: TROPONIN I 0.279 ng/mL (0.00-0.120)
[2018-05-07 13:16] VITALS: BMI 54.5
[2018-05-07] MEDS ORDERED: Heparin25000 units/250ml 1/2NS 25,000 UNITS/250 ML BAG IV PRN (13:23)
[2018-05-07 14:18] LABS: HDL CHOLESTEROL 30 mg/dL (30-70)
[2018-05-07 14:29] LABS: LDL CHOLESTEROL 88 mg/dL (0-129)
[2018-05-07] MEDS: Heparin25000 units/250ml 1/2NS 25,000 UNITS/250 ML BAG IV PRN (14:31)
--- NOTE | 2018-05-07 15:51 | CP.PCM.CON ---
History of Present Illness - History of Present Illness History of Present Illness: Usha Webster, PGY-1, Cardiology Consult Note for Dr. Licona 42 year old female with past medical history of hypertension presents with burning left sided chest pain that started last night at 18:30. Patient was sitting and watching TV when the pain started and reported pain has never happened before. Patient also had heart palpitations during the events and continues to have heart palpitations. Patient reports pain was worse with ambulation but improved with medications given upon presentation to the ER> Patient denies any radiation of pain, shortness of breath, or nausea. PMH: HTN PSH: cholecystectomy FMHx: Father: from stroke at 66 SHx: 3 cigarettes a day for 20 years Allergies: NKDA PMD: Dr. Crandall Adjunct Business Instructor: Dr. Catalan Medications: lisinopril 20 mg, coreg 6.25 mg BID, amlodipine 10 mg, lovastatin 20 mg, hydralazine 25 mg daily Review of Systems - Review of Systems Review of Systems: except as mentioned in HPI Past Patient History - Infectious Disease Hx of Infectious Diseases: None - Past Social History Smoking Status: Light Smoker < 10 Cigarettes Daily - CARDIAC Hx Hypercholesterolemia: Yes Hx Hypertension: Yes - MUSCULOSKELETAL/RHEUMATOLOGICAL Hx Falls: No - PSYCHIATRIC Hx Substance Use: No - SURGICAL HISTORY Hx Cholecystectomy: Yes - ANESTHESIA Hx Anesthesia: Yes Hx Anesthesia Reactions: No Meds Allergies/Adverse Reactions: Allergies Allergy/AdvReac Type Severity Reaction Status Date / Time No Known Allergies Allergy Verified 10/19/17 22:50 - Medications Medications: Current Medications Carvedilol (Coreg) 6.25 mg PO BID [facility] Last Admin: 05/07/18 09:02 Dose: 6.25 mg Diltiazem HCl (Cardizem) 30 mg PO Q8 [facility] Last Admin: 05/07/18 14:28 Dose: 30 mg Hydralazine HCl (Apresoline) 25 mg PO TID [facility] Last Admin: 05/07/18 14:28 Dose: 25 mg Heparin Sodium/Sodium Chloride (Heparin 63008 Units/250ml 1/2 Normal Saline) 25,000 units in 250 mls @ 17.843 mls/hr IV .Q14H1M PRN; Protocol PRN Reason: PROTOCOL Last Admin: 05/07/18 14:31 Dose: 12 units/kg/hr, 17.843 mls/hr Lisinopril (Zestril) 20 mg PO DAILY [facility] Last Admin: 05/07/18 09:02 Dose: 20 mg Rosuvastatin Calcium (Crestor) 2.5 mg PO [facility] Physical Exam - Constitutional Appears: Well, Non-toxic, No Acute Distress - Head Exam Head Exam: ATRAUMATIC, NORMAL INSPECTION, NORMOCEPHALIC - Eye Exam Eye Exam: EOMI, PERRL - ENT Exam ENT Exam: Mucous Membranes Moist - Respiratory Exam Respiratory Exam: Clear to Auscultation Bilateral, NORMAL BREATHING PATTERN - Cardiovascular Exam Cardiovascular Exam: Irregular Rhythm, +S1, +S2 - GI/Abdominal Exam GI & Abdominal Exam: Normal Bowel Sounds, Soft. absent: Tenderness - Extremities Exam Extremities exam: Positive for: full ROM, normal inspection. Negative for: pedal edema - Neurological Exam Neurological exam: Alert, CN II-XII Intact, Oriented x3 - Skin Skin Exam: Dry, Intact Results - Vital Signs Recent Vital Signs: Last Vital Signs Temp 97.4 F L 05/07/18 07:00 Pulse 82 05/07/18 07:00 Resp 20 05/07/18 07:00 BP 120/78 05/07/18 07:00 Pulse Ox 95 05/07/18 07:00 - Labs Result Diagrams: 05/06/18 19:59 05/06/18 19:59 Labs: Laboratory Results - last 24 hr 05/06/18 05/06/18 05/06/18 19:59 19:59 19:59 WBC 11.7 H RBC 5.21 H Hgb 9.5 L Hct 32.3 L MCV 62.0 L MCH 18.3 L MCHC 29.6 L RDW 20.0 H Plt Count 523 H D MPV 8.9 Neut % (Auto) 64.2 Lymph % (Auto) 22.2 Warren % (Auto) 7.2 Eos % (Auto) 5.2 H Baso % (Auto) 1.2 Neut # (Auto) 7.5 H Lymph # (Auto) 2.6 Warren # (Auto) 0.8 Eos # (Auto) 0.6 Baso # (Auto) 0.1 Differential Comment PT 12.0 INR 1.1 APTT 31 Sodium 141 Potassium 4.0 Chloride 105 Carbon Dioxide 30 Anion Gap 10 BUN 16 Creatinine 1.0 Est GFR ( Amer) > 60 Est GFR (Non-Af Amer) > 60 Random Glucose 110 H D Hemoglobin A1c Calcium 9.7 Total Bilirubin 0.4 AST 25 ALT 8 L D Alkaline Phosphatase 83 Total Creatine Kinase CK-MB (Mass) Troponin I 0.0210 NT-Pro-B Natriuret Pep 205 Total Protein 8.3 Albumin 4.5 Globulin 3.8 Albumin/Globulin Ratio 1.2 Triglycerides Cholesterol LDL Cholesterol Direct HDL Cholesterol TSH 3rd Generation Urine Color Urine Clarity Urine pH Ur Specific [place] Urine Protein Urine Glucose (UA) Urine Ketones Urine Blood Urine Nitrate Urine Bilirubin Urine Urobilinogen Ur Leukocyte Esterase Urine WBC (Auto) Urine RBC (Auto) Ur Squamous Epith Cells Urine HCG, Qual 05/06/18 05/06/18 05/07/18 20:30 21:40 00:50 WBC RBC Hgb Hct MCV MCH MCHC RDW Plt Count MPV Neut % (Auto) Lymph % (Auto) Warren % (Auto) Eos % (Auto) Baso % (Auto) Neut # (Auto) Lymph # (Auto) Warren # (Auto) Eos # (Auto) Baso # (Auto) Differential Comment PT INR APTT Sodium Potassium Chloride Carbon Dioxide Anion Gap BUN Creatinine Est GFR ( Amer) Est GFR (Non-Af Amer) Random Glucose Hemoglobin A1c Calcium Total Bilirubin AST ALT Alkaline Phosphatase Total Creatine Kinase 132 CK-MB (Mass) 2.13 Troponin I 0.1080 NT-Pro-B Natriuret Pep Total Protein Albumin Globulin Albumin/Globulin Ratio Triglycerides Cholesterol LDL Cholesterol Direct HDL Cholesterol TSH 3rd Generation 1.45 Urine Color Colorless Urine Clarity Clear Urine pH 7.0 Ur Specific [place] 1.004 Urine Protein 1+ H Urine Glucose (UA) Normal Urine Ketones Negative Urine Blood 2+ H Urine Nitrate Negative Urine Bilirubin Negative Urine Urobilinogen Normal Ur Leukocyte Esterase Neg Urine WBC (Auto) 3 Urine RBC (Auto) 18 H Ur Squamous Epith Cells 1 Urine HCG, Qual Negative 05/07/18 05/07/18 05/07/18 09:15 13:26 13:58 WBC RBC Hgb Hct MCV MCH MCHC RDW Plt Count MPV Neut % (Auto) Lymph % (Auto) Warren % (Auto) Eos % (Auto) Baso % (Auto) Neut # (Auto) Lymph # (Auto) Warren # (Auto) Eos # (Auto) Baso # (Auto) Differential Comment PT INR APTT 34 Sodium Potassium Chloride Carbon Dioxide Anion Gap BUN Creatinine Est GFR ( Amer) Est GFR (Non-Af Amer) Random Glucose Hemoglobin A1c Calcium Total Bilirubin AST ALT Alkaline Phosphatase Total Creatine Kinase 129 CK-MB (Mass) 3.29 Troponin I 0.2790 H* NT-Pro-B Natriuret Pep Total Protein Albumin Globulin Albumin/Globulin Ratio Triglycerides 165 H Cholesterol 139 LDL Cholesterol Direct 88 HDL Cholesterol 30 TSH 3rd Generation Urine Color Urine Clarity Urine pH Ur Specific [place] Urine Protein Urine Glucose (UA) Urine Ketones Urine Blood Urine Nitrate Urine Bilirubin Urine Urobilinogen Ur Leukocyte Esterase Urine WBC (Auto) Urine RBC (Auto) Ur Squamous Epith Cells Urine HCG, Qual 05/07/18 13:58 WBC RBC Hgb Hct MCV MCH MCHC RDW Plt Count MPV Neut % (Auto) Lymph % (Auto) Warren % (Auto) Eos % (Auto) Baso % (Auto) Neut # (Auto) Lymph # (Auto) Warren # (Auto) Eos # (Auto) Baso # (Auto) Differential Comment PT INR APTT Sodium Potassium Chloride Carbon Dioxide Anion Gap BUN Creatinine Est GFR ( Amer) Est GFR (Non-Af Amer) Random Glucose Hemoglobin A1c 6.4 Calcium Total Bilirubin AST ALT Alkaline Phosphatase Total Creatine Kinase CK-MB (Mass) Troponin I NT-Pro-B Natriuret Pep Total Protein Albumin Globulin Albumin/Globulin Ratio Triglycerides Cholesterol LDL Cholesterol Direct HDL Cholesterol TSH 3rd Generation Urine Color Urine Clarity Urine pH Ur Specific [place] Urine Protein Urine Glucose (UA) Urine Ketones Urine Blood Urine Nitrate Urine Bilirubin Urine Urobilinogen Ur Leukocyte Esterase Urine WBC (Auto) Urine RBC (Auto) Ur Squamous Epith Cells Urine HCG, Qual Assessment & Plan (1) Chest pain Assessment and Plan: EKG: atrial fibrillation with RVR with HR: 136 Tropx3: 0.0210, 0.55276, 0.2790 HgbA1c: 6.4 T. Rest of lipid panel unremarkable Started on aspirin, coreg, lisinopril, statin. Likely for cardiac catheterization tomorrow. Status: Acute (2) New onset a-fib Assessment and Plan: Confirmed with EKG and physical exam Started on cardizem and therapeutic heparin Status: Acute (3) Hypertension Assessment and Plan: Continue with coreg, cardizem, hydralazine, and zestril. Status: Acute - Date & Time Date: 05/07/18 Time: 15:51
[2018-05-07 18:53] LABS: CK-MB 1.73 ng/mL (0.0-3.38); TROPONIN I 0.172 ng/mL (0.00-0.120)
[2018-05-07] MEDS: Rosuvastatin Calcium 2.5 mg Tab PO SCH (21:08)
[2018-05-08 03:45] LABS: BASO # 0.1 K/uL (0.0-0.2); BASO % 0.9 % (0.0-2.0); EOS # 0.7 K/uL (0.0-0.7); EOS % 6.8 % (0.0-4.0); LYMPH # 2.9 K/uL (1.0-4.3); MEAN CELL VOLUME 61.8 fL (81.0-99.0); MEAN CORPUSCULAR HEMOGLOBIN 18.6 pg (27.0-31.0); MEAN PLATELET VOLUME 8.8 fL (7.2-11.7); MONO # 0.7 K/uL (0.0-0.8); MONO % 6.7 % (0.0-10.0); NEUT # 5.4 K/uL (1.8-7.0); NEUT % 55.6 % (50.0-75.0); RBC 4.83 Mil/uL (3.80-5.20); WHITE BLOOD COUNT 9.8 K/uL (4.8-10.8)
[2018-05-08 03:53] LABS: ALB/GLOB RATIO 1.2 (1.0-2.1); ALBUMIN 3.9 g/dL (3.5-5.0); ALT/SGPT 15 U/L (9-52); AST/SGOT 18 U/L (14-36); BLOOD UREA NITROGEN 20 mg/dL (7-17); CALCIUM 8.9 mg/dl (8.6-10.4); GFR NON-AFRICAN AMERICAN 50
[2018-05-08] MEDS: Heparin25000 units/250ml 1/2NS 25,000 UNITS/250 ML BAG IV PRN (04:23)
[2018-05-08] MEDS ORDERED: Midazolam 2 MG/2 ML VIAL ONE ×3 (08:19→09:04)
[2018-05-08] MEDS ORDERED: Iodixanol 320 MG/ML 200 ML BOTTLE IV ONE (08:26)
[2018-05-08] MEDS ORDERED: Lidocaine 4% (Laryng-O-Jet) Kit MM ONE (08:55)
[2018-05-08] MEDS ORDERED: Propofol 10 mg/ml Inj (20 ML) ONE (08:56)
[2018-05-08] MEDS ORDERED: Amiodarone 150mg/3 ml vial ONE (09:13)
--- NOTE | 2018-05-08 09:26 | CP.PCM.PN ---
<Karla Fry - Last Filed: 05/08/18 14:44> Subjective - Date & Time of Evaluation Date of Evaluation: 05/08/18 Time of Evaluation: 09:26 - Subjective Subjective: Medicine Progress Note - Dr Puja Delvalle's service Patient seen and examined at bedside. Patient went for cardiac catherization and VAN with cardioversion this morning. STEEL POST INSTALLER was called for low O2 saturation. Cardiac cath showed normal coronaries. VAN showed arthromas. Patient was given Narcan and placed on non-rebreather with improvement in O2 saturations. We will continue to monitor. Objective - Vital Signs/Intake and Output Vital Signs (last 24 hours): Temp Pulse Resp BP Pulse Ox 97.8 F 83 18 116/72 100 05/08/18 07:00 05/08/18 07:38 05/08/18 07:00 05/08/18 07:00 05/08/18 07:00 Intake and Output: 05/08/18 05/08/18 06:59 18:59 Intake Total 250 Balance 250 - Medications Medications: Current Medications Carvedilol (Coreg) 6.25 mg PO BID [facility] Last Admin: 05/07/18 17:42 Dose: 6.25 mg Diltiazem HCl (Cardizem) 30 mg PO Q8 [facility] Last Admin: 05/08/18 06:28 Dose: 30 mg Hydralazine HCl (Apresoline) 25 mg PO TID [facility] Last Admin: 05/07/18 17:41 Dose: 25 mg Lisinopril (Zestril) 20 mg PO DAILY [facility] Last Admin: 05/07/18 09:02 Dose: 20 mg Rosuvastatin Calcium (Crestor) 2.5 mg PO HS [facility] Last Admin: 05/07/18 21:08 Dose: 2.5 mg - Labs Labs: 05/08/18 03:29 05/08/18 03:29 PT 12.0 SECONDS (9.7-12.2) 05/06/18 19:59 INR 1.1 05/06/18 19:59 APTT 86 SECONDS (21-34) H D 05/08/18 03:29 - Additional Findings Additional findings: - Head Exam Head Exam: ATRAUMATIC, NORMAL INSPECTION - Eye Exam Eye Exam: EOMI, Normal appearance, PERRL Pupil Exam: NORMAL ACCOMODATION, PERRL. absent: Irregular, Unequal - ENT Exam ENT Exam: Mucous Membranes Moist, Normal Oropharynx - Respiratory Exam Respiratory Exam: Clear to Ausculation Bilateral, NORMAL BREATHING PATTERN. absent: Prolonged Expiratory Phase, Respiratory Distress - Cardiovascular Exam Cardiovascular Exam: REGULAR RHYTHM, RRR, +S1, +S2. absent: Gallop, Rubs - GI/Abdominal Exam GI & Abdominal Exam: Soft, Normal Bowel Sounds. absent: Hyperactive Bowel Sounds - Extremities Exam Extremities Exam: Full ROM, Normal Inspection. absent: Joint Swelling, Pedal Edema - Back Exam Back Exam: NORMAL INSPECTION. absent: CVA tenderness (R), paraspinal tenderness - Neurological Exam Neurological Exam: Alert, Awake, CN II-XII Intact, Oriented x3 - Psychiatric Exam Psychiatric exam: Normal Affect, Normal Mood. absent: Depressed - Skin Skin Exam: Dry, Intact Assessment and Plan - Assessment and Plan (Free Text) Assessment: Patient is a 42 year old female with a past medical history of hypertension and hypercholesterolemia presents to the hospital reporting palpitations that begin prior to coming into the hospital. Plan: New onset Atrial fibrillation S/P VAN with cardioversion We will start patient on Cardizem 120mg PO daily Patient will also need to start Xarelto 20mg PO daily Echocardiogram official read pending Continue Aspirin 325mg PO daily, Coreg 6.25mg PO BID Cardiology on consult, Dr Licona, help appreciated NSTEMI S/P Cardiac catherization - normal coronaries EKG on admission:afib @137bpm Nonspecific Changes EKG with elevated troponin : afib @81bpm Cardiology on consult, Dr Licona, help appreciated Hypertension -Continue Hydralazine 25mg PO TID -Continue Lisinopril 20 mg PO DAILY Hypercholesterolemia -Continue Rosuvastatin 2.5mg PO HS Impaired Glucose Tolerance -A1C 6.4 on admission -Patient to be counselled on diet modification and exercise Anemia -F/U iron studies PPX -GI ppx not indicated at this time. Dispo: Patient to be started on Cardizem 120mg PO daily and Xarelto 20mg PO daily per cardiology recommendations. We will observe overnight. Likely for discharge home tomorrow. Can F/U with cardiology in 2 weeks. Plan discussed with Dr Puja Fry DO PGY-2 <Vinay Delvalle S - Last Filed: 05/08/18 22:16> Objective - Vital Signs/Intake and Output Vital Signs (last 24 hours): Temp Pulse Resp BP Pulse Ox 97.8 F 75 20 120/68 96 05/08/18 16:00 05/08/18 16:04 05/08/18 16:00 05/08/18 21:25 05/08/18 16:00 - Medications Medications: Current Medications Carvedilol (Coreg) 6.25 mg PO BID [facility] Last Admin: 05/08/18 17:00 Dose: Not Given Diltiazem HCl (Cardizem) 30 mg PO Q8 [facility] Last Admin: 05/08/18 21:25 Dose: 30 mg Diltiazem HCl (Cardizem Cd) 120 mg PO DAILY [facility] Hydralazine HCl (Apresoline) 25 mg PO TID [facility] Last Admin: 05/08/18 17:00 Dose: Not Given Lisinopril (Zestril) 20 mg PO DAILY [facility] Last Admin: 05/08/18 10:00 Dose: Not Given Rivaroxaban (Xarelto) 20 mg PO DAILY [facility] Rosuvastatin Calcium (Crestor) 2.5 mg PO HS [facility] Last Admin: 05/08/18 21:26 Dose: 2.5 mg - Labs Labs: 05/08/18 03:29 05/08/18 03:29 PT 12.0 SECONDS (9.7-12.2) 05/06/18 19:59 INR 1.1 05/06/18 19:59 APTT 86 SECONDS (21-34) H D 05/08/18 03:29 Assessment and Plan (1) Chest pain Status: Acute (2) Morbid obesity Status: Acute (3) New onset a-fib Status: Acute (4) Anemia Status: Acute (5) Dyspnea Status: Acute (6) New onset of congestive heart failure Status: Chronic (7) Asymptomatic microscopic hematuria Status: Acute Attending/Attestation - Attestation I have personally seen and examined this patient.: Yes I have fully participated in the care of the patient.: Yes I have reviewed all pertinent clinical information, including history, physical exam and plan: Yes Notes (Text): 05/08/18 22:15 case seen and d.w staff and resident, concurred with finding and managemenStatus post rapid response Discussed with the staff
[2018-05-08] MEDS ORDERED: Flumazenil 0.1 mg/ml Inj (5ml) IVP ONE (09:41)
--- NOTE | 2018-05-08 12:52 | CP.PCM.PN ---
Subjective - Date & Time of Evaluation Date of Evaluation: 05/08/18 Time of Evaluation: 12:45 - Subjective Subjective: pt still inpacu s/p auto machinist post cath andcath normal pt desatured after denise pt became hypotensive and unrepsonsive s/p narcan ? cardoverted Objective - Vital Signs/Intake and Output Vital Signs (last 24 hours): Temp Pulse Resp BP Pulse Ox 97.8 F 83 18 116/72 100 05/08/18 07:00 05/08/18 07:38 05/08/18 07:00 05/08/18 07:00 05/08/18 07:00 Intake and Output: 05/08/18 05/08/18 06:59 18:59 Intake Total 250 Balance 250 - Medications Medications: Current Medications Carvedilol (Coreg) 6.25 mg PO BID [facility] Last Admin: 05/07/18 17:42 Dose: 6.25 mg Diltiazem HCl (Cardizem) 30 mg PO Q8 [facility] Last Admin: 05/08/18 06:28 Dose: 30 mg Hydralazine HCl (Apresoline) 25 mg PO TID [facility] Last Admin: 05/07/18 17:41 Dose: 25 mg Lisinopril (Zestril) 20 mg PO DAILY [facility] Last Admin: 05/07/18 09:02 Dose: 20 mg Rosuvastatin Calcium (Crestor) 2.5 mg PO HS [facility] Last Admin: 05/07/18 21:08 Dose: 2.5 mg - Labs Labs: 05/08/18 03:29 05/08/18 03:29 PT 12.0 SECONDS (9.7-12.2) 05/06/18 19:59 INR 1.1 05/06/18 19:59 APTT 86 SECONDS (21-34) H D 05/08/18 03:29 - Constitutional Appears: Well - Head Exam Head Exam: ATRAUMATIC, NORMAL INSPECTION, NORMOCEPHALIC - Eye Exam Eye Exam: EOMI, Normal appearance, PERRL Pupil Exam: NORMAL ACCOMODATION, PERRL - ENT Exam ENT Exam: Mucous Membranes Moist, Normal Exam - Neck Exam Neck Exam: Full ROM, Normal Inspection. absent: Lymphadenopathy - Respiratory Exam Respiratory Exam: Decreased Breath Sounds - Cardiovascular Exam Cardiovascular Exam: REGULAR RHYTHM, +S1, +S2 - GI/Abdominal Exam GI & Abdominal Exam: Soft, Diminished Bowel Sounds - Rectal Exam Rectal Exam: Deferred Assessment and Plan (1) Chest pain Status: Acute (2) Morbid obesity Status: Acute (3) New onset a-fib Status: Acute (4) Anemia Status: Acute (5) Dyspnea Status: Acute (6) New onset of congestive heart failure Status: Chronic (7) Asymptomatic microscopic hematuria Status: Acute - Assessment and Plan (Free Text) Plan: medications reviewed vitals reviewed labs reviewed apresoline cardizem cd coreg crestor xarelto zestril cardio followup supportive treatment icu if need d/w staff vitals more better
--- NOTE | 2018-05-08 15:47 | CP.PCM.PN ---
Subjective - Date & Time of Evaluation Date of Evaluation: 05/08/18 Time of Evaluation: 15:45 - Subjective Subjective: Usha Webster, PGY-1, Cardiology Progress Note for Dr. Licona Patient seen and evaluated at bedside. Patient had no acute overnight events. Patient had cardiac catheterization and VAN Today. Patient was cardioverted after the VAN for atrial fibrillation. Patient was given propofol, fentanyl, and versed. Patient's blood pressure dropped to 80s/50s and patient became unresponsive. Once patient was placed in trendelenberg, patient's blood pressure improved. However, patient was unable to start breathing spontaneously. Patient was bagged but O2 saturation dropped as low as the 20s. Patient was given narcan and flumazenil with significant improvement in O2 saturation to 95-100% and patient was responsive. Objective - Vital Signs/Intake and Output Vital Signs (last 24 hours): Temp Pulse Resp BP Pulse Ox 98.2 F 69 20 105/66 98 05/08/18 14:00 05/08/18 14:00 05/08/18 14:00 05/08/18 14:00 05/08/18 14:00 Intake and Output: 05/08/18 05/08/18 06:59 18:59 Intake Total 250 Balance 250 - Medications Medications: Current Medications Carvedilol (Coreg) 6.25 mg PO BID [facility] Last Admin: 05/08/18 10:00 Dose: Not Given Diltiazem HCl (Cardizem) 30 mg PO Q8 [facility] Last Admin: 05/08/18 14:57 Dose: 30 mg Diltiazem HCl (Cardizem Cd) 120 mg PO DAILY [facility] Hydralazine HCl (Apresoline) 25 mg PO TID [facility] Last Admin: 05/08/18 14:57 Dose: Not Given Lisinopril (Zestril) 20 mg PO DAILY [facility] Last Admin: 05/08/18 10:00 Dose: Not Given Rivaroxaban (Xarelto) 20 mg PO DAILY [facility] Rosuvastatin Calcium (Crestor) 2.5 mg PO HS [facility] Last Admin: 05/07/18 21:08 Dose: 2.5 mg - Labs Labs: 05/08/18 03:29 05/08/18 03:29 PT 12.0 SECONDS (9.7-12.2) 05/06/18 19:59 INR 1.1 05/06/18 19:59 APTT 86 SECONDS (21-34) H D 05/08/18 03:29 - Constitutional Appears: Well, Non-toxic, No Acute Distress - Head Exam Head Exam: ATRAUMATIC, NORMAL INSPECTION, NORMOCEPHALIC - Eye Exam Eye Exam: EOMI, PERRL - ENT Exam ENT Exam: Mucous Membranes Moist - Respiratory Exam Respiratory Exam: Clear to Auscultation Bilateral, NORMAL BREATHING PATTERN - Cardiovascular Exam Cardiovascular Exam: Irregular Rhythm, +S1, +S2 - GI/Abdominal Exam GI & Abdominal Exam: Normal Bowel Sounds, Soft. absent: Tenderness - Extremities Exam Extremities exam: Positive for: full ROM, normal inspection. Negative for: pedal edema - Neurological Exam Neurological exam: Alert, CN II-XII Intact, Oriented x3 - Skin Skin Exam: Dry, Intact Assessment and Plan (1) Chest pain Assessment & Plan: EKG: atrial fibrillation with RVR with HR: 136 Tropx3: 0.0210, 0.89998, 0.2790 HgbA1c: 6.4 T. Rest of lipid panel unremarkable Continue on aspirin, coreg, lisinopril, statin. Cardiac catheterization performed today. VAN performed today showing large burden of atheroma in descending aorta. Status: Acute (2) New onset a-fib Assessment & Plan: Confirmed with EKG and physical exam Status post cardioversion with conversion into normal sinus rhythm Status: Acute (3) Hypertension Assessment & Plan: Continue with coreg, cardizem, hydralazine, and zestril. Status: Acute
--- NOTE | 2018-05-08 16:12 | PCM.RRT ---
<Morgan Prasad - Last Filed: 05/08/18 16:09> WAREHOUSE CONSULTANT Nurses Assessment - Situation Date: 05/08/18 WAREHOUSE CONSULTANT Location:: Dance Artist WAREHOUSE CONSULTANT Reason for Call: O2 Saturation below 90% New IV Insertion Tolerance: Good I.Reason for WAREHOUSE CONSULTANT - A) Acute Change in Patient: Subjective: Brief economic specialist resident note WAREHOUSE CONSULTANT called for desaturation after cardiac cath and AVN early this AM. Patient was cardioverted after the VAN for atrial fibrillation. Patient was given propofol 100, fentanyl 100, and versed 4. Patient's blood pressure dropped to 80s/50s and patient became unresponsive. Patient was placed in trendelenberg position and BP improved. However, patient was unable to start breathing spontaneously. Patient was bagged but O2 saturation dropped as low as the 20s. Patient was given narcan and flumazenil with significant improvement in O2 saturation to 95-100% and patient was responsive. <Vinay Delvalle - Last Filed: 05/08/18 22:14> WAREHOUSE CONSULTANT Nurses Assessment - Vital Signs Vital Signs: Rapid Response Vital Sign Blood Pressure 78/53 Pulse Rate 55 Respiratory Rate 8 Temperature 98.1 F Oxygen Saturation 10 - Vital Signs at end of WAREHOUSE CONSULTANT Vital Signs at end of WAREHOUSE CONSULTANT: Rapid Response End Vital Sign Blood Pressure 92/55 Pulse Rate 88 Respiratory Rate 20 Temperature 97.3 F O2 Sat by Pulse Oximetry 100
[2018-05-08 16:13] VITALS: O2SAT 96
--- NOTE | 2018-05-08 19:27 | CARDCATH ---
PROCEDURE DATE: 05/08/2018 INDICATION: Ms. Dorothy Daniel is a 42-year-old female with history of morbid obesity, hypertension, prediabetes, and dyslipidemia, who presented with complaints of chest pain and shortness of breath along with palpitations. She was noted to be in new onset atrial fibrillation. She was ruled in for ACS with positive cardiac enzymes. She was therefore brought to the woods laborer for further evaluation and treatment of non-ST elevation [place]. PROCEDURE PERFORMED: Left heart catheterization with selective left and right coronary angiogram, left ventriculogram, 6-Thai left radial artery access wrist band for hemostasis. ANGIOGRAPHIC FINDINGS: Left main, large size vessel bifurcates into left anterior descending and left circumflex coronary artery. Left anterior descending is a large size vessel, free of any obstructive disease, gives off 2 small size diagonal branches. Left circumflex is a large size vessel, runs in the AV groove with large obtuse marginal branch. Distally, the left circumflex gives the left PLV branch's codominant circulation, free of any obstructive disease. LAD proximal mid distal 0%, left circumflex proximal mid distal 0%, obtuse marginal proximal mid distal 0%, RCA large size vessel, free of any obstructive disease, right PDA free of any obstructive disease, codominant circulation. Left ventricular ejection fraction 50% to 55%, LVEDP was 24. IMPRESSION: Normal coronaries, normal left ventricular ejection fraction, elevated end-diastolic pressure consistent with diastolic dysfunction. RECOMMENDATIONS: Continue guideline-directed therapy for diastolic CHF. Consider PE cardioversion. Royer Licona MD
[2018-05-08] MEDS: Rosuvastatin Calcium 2.5 mg Tab PO SCH (21:26)
--- NOTE | 2018-05-09 06:39 | CARD ---
APPROVED REPORT Date of service: 05/07/2018 EKG Measurement Heart [id number] <Conclusion> Atrial fibrillation ST & T wave abnormality, consider lateral ischemia Prolonged QT Abnormal ECG
--- NOTE | 2018-05-09 06:50 | CARD ---
APPROVED REPORT Date of service: 05/06/2018 EKG Measurement Heart [id number] <Conclusion> Atrial fibrillation with rapid ventricular response Marked ST abnormality, possible inferolateral subendocardial injury Abnormal ECG
[2018-05-09 07:31] LABS: IRON 17 ug/dL (37-170)
[2018-05-09 07:40] LABS: % IRON SATURATION 5 (20-55); TOTAL IRON BINDING CAPACITY 348 ug/dL (250-450)
[2018-05-09 07:45] LABS: ALB/GLOB RATIO 1.2 (1.0-2.1); ALBUMIN 3.6 g/dL (3.5-5.0); ALT/SGPT 21 U/L (9-52); AST/SGOT 19 U/L (14-36); BLOOD UREA NITROGEN 15 mg/dL (7-17); CALCIUM 8.6 mg/dl (8.6-10.4); GFR NON-AFRICAN AMERICAN > 60
--- NOTE | 2018-05-09 07:51 | CP.PCM.PN ---
<Karla Fry - Last Filed: 05/09/18 13:15> Subjective - Date & Time of Evaluation Date of Evaluation: 05/09/18 Time of Evaluation: 07:51 - Subjective Subjective: Medicine Progress Note - Dr Puja Delvalle's service Patient seen and examined at bedside. Per nursing no acute events overnight. Patient is doing well, ambulating and tolerating diet. Denies any chest pain or shortness of breath. Offers no other complaints at this time. Objective - Vital Signs/Intake and Output Vital Signs (last 24 hours): Temp Pulse Resp BP Pulse Ox 98.2 F 70 18 120/67 96 05/09/18 00:17 05/09/18 00:17 05/09/18 00:17 05/09/18 00:17 05/09/18 00:17 Intake and Output: 05/09/18 05/09/18 06:59 18:59 Intake Total 240 Balance 240 - Medications Medications: Current Medications Carvedilol (Coreg) 6.25 mg PO BID [facility] Last Admin: 05/08/18 17:00 Dose: Not Given Diltiazem HCl (Cardizem Cd) 120 mg PO DAILY [facility] Docusate Sodium (Colace) 100 mg PO DAILY [facility] Ferrous Sulfate (Feosol) 325 mg PO DAILY [facility] Hydralazine HCl (Apresoline) 25 mg PO TID [facility] Last Admin: 05/08/18 17:00 Dose: Not Given Lisinopril (Zestril) 20 mg PO DAILY [facility] Last Admin: 05/08/18 10:00 Dose: Not Given Rivaroxaban (Xarelto) 20 mg PO DAILY [facility] Rosuvastatin Calcium (Crestor) 2.5 mg PO HS [facility] Last Admin: 05/08/18 21:26 Dose: 2.5 mg - Labs Labs: 05/08/18 03:29 05/09/18 07:12 PT 12.0 SECONDS (9.7-12.2) 05/06/18 19:59 INR 1.1 05/06/18 19:59 APTT 86 SECONDS (21-34) H D 05/08/18 03:29 - Additional Findings Additional findings: - Head Exam Head Exam: ATRAUMATIC, NORMAL INSPECTION - Eye Exam Eye Exam: EOMI, Normal appearance, PERRL Pupil Exam: NORMAL ACCOMODATION, PERRL. absent: Irregular, Unequal - ENT Exam ENT Exam: Mucous Membranes Moist, Normal Oropharynx - Respiratory Exam Respiratory Exam: Clear to Auscultation Bilateral, NORMAL BREATHING PATTERN. absent: Prolonged Expiratory Phase, Respiratory Distress - Cardiovascular Exam Cardiovascular Exam: REGULAR RHYTHM, RRR, +S1, +S2. absent: Gallop, Rubs - GI/Abdominal Exam GI & Abdominal Exam: Soft, Normal Bowel Sounds. absent: Hyperactive Bowel Sounds - Extremities Exam Extremities Exam: Full ROM, Normal Inspection. absent: Joint Swelling, Pedal Edema - Back Exam Back Exam: NORMAL INSPECTION. absent: CVA tenderness (R), paraspinal tenderness - Neurological Exam Neurological Exam: Alert, Awake, CN II-XII Intact, Oriented x3 - Psychiatric Exam Psychiatric exam: Normal Affect, Normal Mood. absent: Depressed - Skin Skin Exam: Dry, Intact Assessment and Plan - Assessment and Plan (Free Text) Assessment: Patient is a 42 year old female with a past medical history of hypertension and hypercholesterolemia presents to the hospital reporting palpitations that begin prior to coming into the hospital. Plan: New onset Atrial fibrillation S/P VAN with cardioversion Started on Cardizem 120mg PO daily Start on Xarelto 20mg PO daily Continue Aspirin 81 mg PO daily, Coreg 6.25mg PO BID Cardiology on consult, Dr Licona, help appreciated NSTEMI S/P Cardiac catherization - normal coronaries EKG on admission:afib @137bpm Nonspecific Changes EKG with elevated troponin : afib @81bpm Cardiology on consult, Dr Licona, help appreciated Hypertension Continue Hydralazine 25mg PO TID Continue Lisinopril 20 mg PO DAILY Hypercholesterolemia Continue Rosuvastatin 2.5 mg PO HS Impaired Glucose Tolerance A1C 6.4 on admission Patient to be counselled on diet modification and exercise Anemia Patient is iron deficient Started on Ferrous sulfate 325mg PO daily, and Colace 100mg PO daily Patient reports having heavy menstrual periods, has not seen a FREELANCE DISPLAYER in "many" years Recommending FREELANCE DISPLAYER outpatient for follow up PPX -GI ppx not indicated at this time. Dispo: Patient to be discharged with Cardizem 120mg PO daily and Xarelto 20mg PO daily per cardiology recommendations. Patient to follow up with Dr Licona in two weeks. Also recommending outpatient FREELANCE DISPLAYER follow up. Plan discussed with Dr Puja Fry DO PGY-2 <Vinay Delvalle S - Last Filed: 05/09/18 22:46> Objective - Vital Signs/Intake and Output Vital Signs (last 24 hours): Temp Pulse Resp BP Pulse Ox 97.9 F 69 20 143/70 96 05/09/18 07:56 05/09/18 12:00 05/09/18 07:56 05/09/18 10:31 05/09/18 07:56 - Labs Labs: 05/08/18 03:29 05/09/18 07:12 PT 12.0 SECONDS (9.7-12.2) 05/06/18 19:59 INR 1.1 05/06/18 19:59 APTT 86 SECONDS (21-34) H D 05/08/18 03:29 Assessment and Plan (1) Chest pain Status: Acute (2) Morbid obesity Status: Acute (3) New onset a-fib Status: Acute (4) Anemia Status: Acute (5) Dyspnea Status: Acute (6) New onset of congestive heart failure Status: Chronic (7) Asymptomatic microscopic hematuria Status: Acute Attending/Attestation - Attestation I have personally seen and examined this patient.: Yes I have fully participated in the care of the patient.: Yes I have reviewed all pertinent clinical information, including history, physical exam and plan: Yes Notes (Text): 05/09/18 22:45 case seen and adis staff and resident, concurred with finding and management.. dc today on xarelto and cardiezem and other isuse tabbyw with cardiology
[2018-05-09 07:57] VITALS: RESP 20; TEMP 97.9
[2018-05-09 08:45] LABS: FOLATE 8.4 ng/mL
[2018-05-09 09:17] LABS: FERRITIN 4.7 ng/mL
[2018-05-09] MEDS ORDERED: diltiaZEM 120 mg/24 Hours CD Cap PO SCH (10:00)
--- NOTE | 2018-05-09 10:00 | CP.PCM.PN ---
Subjective - Date & Time of Evaluation Date of Evaluation: 05/09/18 Time of Evaluation: 09:57 - Subjective Subjective: Usha Webster, PGY-1, Cardiology Progress Note for Dr. Licona Patient seen and evaluated at bedside. Patient had no acute overnight events. Patient reports increased sweating but denies chest pain, shortness of breath or nausea today. Objective - Vital Signs/Intake and Output Vital Signs (last 24 hours): Temp Pulse Resp BP Pulse Ox 97.9 F 100 H 20 97/60 L 96 05/09/18 07:56 05/09/18 07:56 05/09/18 07:56 05/09/18 07:56 05/09/18 07:56 Intake and Output: 05/09/18 05/09/18 06:59 18:59 Intake Total 240 Balance 240 - Medications Medications: Current Medications Carvedilol (Coreg) 6.25 mg PO BID [facility] Last Admin: 05/08/18 17:00 Dose: Not Given Diltiazem HCl (Cardizem Cd) 120 mg PO DAILY [facility] Docusate Sodium (Colace) 100 mg PO DAILY [facility] Ferrous Sulfate (Feosol) 325 mg PO DAILY [facility] Hydralazine HCl (Apresoline) 25 mg PO TID [facility] Last Admin: 05/08/18 17:00 Dose: Not Given Lisinopril (Zestril) 20 mg PO DAILY [facility] Last Admin: 05/08/18 10:00 Dose: Not Given Rivaroxaban (Xarelto) 20 mg PO DAILY [facility] Rosuvastatin Calcium (Crestor) 2.5 mg PO HS [facility] Last Admin: 05/08/18 21:26 Dose: 2.5 mg - Labs Labs: 05/08/18 03:29 05/09/18 07:12 PT 12.0 SECONDS (9.7-12.2) 05/06/18 19:59 INR 1.1 05/06/18 19:59 APTT 86 SECONDS (21-34) H D 05/08/18 03:29 - Constitutional Appears: Well, Non-toxic, No Acute Distress - Head Exam Head Exam: ATRAUMATIC, NORMAL INSPECTION, NORMOCEPHALIC - Eye Exam Eye Exam: EOMI, PERRL - ENT Exam ENT Exam: Mucous Membranes Moist - Respiratory Exam Respiratory Exam: Clear to Auscultation Bilateral, NORMAL BREATHING PATTERN - Cardiovascular Exam Cardiovascular Exam: RRR, +S1, +S2 - GI/Abdominal Exam GI & Abdominal Exam: Normal Bowel Sounds, Soft. absent: Tenderness - Extremities Exam Extremities exam: Positive for: full ROM, normal inspection. Negative for: pedal edema - Neurological Exam Neurological exam: Alert, CN II-XII Intact, Oriented x3 - Skin Skin Exam: Dry, Intact Assessment and Plan (1) Chest pain Assessment & Plan: EKG: atrial fibrillation with RVR with HR: 136 Tropx3: 0.0210, 0.26434, 0.2790 HgbA1c: 6.4 T. Rest of lipid panel unremarkable VAN: showing large burden of atheroma in descending aorta. Continue on aspirin, coreg, lisinopril, statin. Cardiac catheterization performed showing normal coronaries and normal LVEF but has increased EDP Status: Acute (2) New onset a-fib Assessment & Plan: Confirmed with EKG and physical exam Status post cardioversion with conversion into normal sinus rhythm Status: Acute (3) Hypertension Assessment & Plan: Continue with coreg, cardizem, hydralazine, and zestril. Status: Acute
[2018-05-09 10:32] VITALS: BP 143/70
[2018-05-09 12:24] VITALS: PULSE 69
--- NOTE | 2018-05-09 13:33 | PCM.HF ---
Heart Failure Core Measure - Heart Failure Ejection Fraction: 40 % or Greater (EF 50-55%) [place] Inhibitor Prescribed: Yes Beta-Inge Prescribed: Carvedilol Angiotensin II Receptor Inge Prescribed: No Contraindication/Reason for not providing: on [place] AnticoagulationTherapy for Atrial Fibrillation/Atrialflutter: Yes Aldosterone Antagonist Prescribed: No Contraindication/Reason for not providing: EF >40% Hydralazine Nitrate Prescribed: Yes Implantable Cardioverter Defibrillator Therapy: No Contraindication/Reason for not providing: EF >40% Cardiac Resynchronization Therapy Prescribed: No Contraindication/Reason for not providing: not indicated - Follow up Will be discharged to: Home Follow Up Date (must be within 7 days from discharge): 05/20/18 Follow Up Time: 10:00
--- NOTE | 2018-05-09 14:47 | CP.PCM.PN ---
Subjective - Date & Time of Evaluation Date of Evaluation: 05/09/18 - Subjective Subjective: patient seen and examined today no nausea no vomitng no fever no diarrhea no sob Objective - Vital Signs/Intake and Output Vital Signs (last 24 hours): Temp Pulse Resp BP Pulse Ox 97.9 F 69 20 143/70 96 05/09/18 07:56 05/09/18 12:00 05/09/18 07:56 05/09/18 10:31 05/09/18 07:56 Intake and Output: 05/09/18 05/09/18 06:59 18:59 Intake Total 240 Balance 240 - Medications Medications: Current Medications Carvedilol (Coreg) 6.25 mg PO BID [facility] Last Admin: 05/09/18 10:30 Dose: 6.25 mg Diltiazem HCl (Cardizem Cd) 120 mg PO DAILY [facility] Last Admin: 05/09/18 10:30 Dose: 120 mg Docusate Sodium (Colace) 100 mg PO DAILY [facility] Last Admin: 05/09/18 10:29 Dose: 100 mg Ferrous Sulfate (Feosol) 325 mg PO DAILY [facility] Last Admin: 05/09/18 10:30 Dose: 325 mg Hydralazine HCl (Apresoline) 25 mg PO TID [facility] Last Admin: 05/09/18 10:30 Dose: 25 mg Lisinopril (Zestril) 20 mg PO DAILY [facility] Last Admin: 05/09/18 10:30 Dose: 20 mg Rivaroxaban (Xarelto) 20 mg PO DAILY [facility] Last Admin: 05/09/18 10:30 Dose: 20 mg Rosuvastatin Calcium (Crestor) 2.5 mg PO HS [facility] Last Admin: 05/08/18 21:26 Dose: 2.5 mg - Labs Labs: 05/08/18 03:29 05/09/18 07:12 PT 12.0 SECONDS (9.7-12.2) 05/06/18 19:59 INR 1.1 05/06/18 19:59 APTT 86 SECONDS (21-34) H D 05/08/18 03:29 - Constitutional Appears: Well - Head Exam Head Exam: ATRAUMATIC, NORMAL INSPECTION, NORMOCEPHALIC - Eye Exam Eye Exam: EOMI, Normal appearance, PERRL Pupil Exam: NORMAL ACCOMODATION, PERRL - ENT Exam ENT Exam: Mucous Membranes Moist, Normal Exam - Neck Exam Neck Exam: Full ROM, Normal Inspection. absent: Lymphadenopathy - Respiratory Exam Respiratory Exam: Decreased Breath Sounds - Cardiovascular Exam Cardiovascular Exam: REGULAR RHYTHM, +S1, +S2 - GI/Abdominal Exam GI & Abdominal Exam: Soft, Diminished Bowel Sounds - Rectal Exam Rectal Exam: Deferred Assessment and Plan (1) Chest pain Status: Acute (2) Morbid obesity Status: Acute (3) New onset a-fib Status: Acute (4) Anemia Status: Acute (5) Dyspnea Status: Acute (6) New onset of congestive heart failure Status: Chronic (7) Asymptomatic microscopic hematuria Status: Acute - Assessment and Plan (Free Text) Plan: medications reviewed labs reviewed vitals reviewed
--- NOTE | 2018-05-09 22:47 | CP.PCM.DIS ---
Provider - Provider Date of Admission: 05/06/18 21:28 Attending physician: Berna Delvalle MD Consults: 05/06/18 21:32 Cardiology Consult Stat Comment: new onset afib Consulting Provider: Royer Licona Consulting Physician: Royer Licona Reason for Consult: new onset afib Time Spent in preparation of Discharge (in minutes): 20 Diagnosis - Discharge Diagnosis (1) Chest pain Status: Acute (2) Morbid obesity Status: Acute (3) New onset a-fib Status: Acute (4) Anemia Status: Acute (5) Dyspnea Status: Acute (6) New onset of congestive heart failure Status: Chronic (7) Asymptomatic microscopic hematuria Status: Acute Hospital Course - Lab Results Lab Results: Most Recent Lab Values WBC 9.8 K/uL (4.8-10.8) 05/08/18 03:29 RBC 4.83 Mil/uL (3.80-5.20) 05/08/18 03:29 Hgb 9.0 g/dL (11.0-16.0) L 05/08/18 03:29 Hct 29.8 % (34.0-47.0) L 05/08/18 03:29 MCV 61.8 fL (81.0-99.0) L 05/08/18 03:29 MCH 18.6 pg (27.0-31.0) L 05/08/18 03:29 MCHC 30.0 g/dL (33.0-37.0) L 05/08/18 03:29 RDW 19.0 % (11.5-14.5) H 05/08/18 03:29 Plt Count 475 K/uL (130-400) H 05/08/18 03:29 MPV 8.8 fL (7.2-11.7) 05/08/18 03:29 Neut % (Auto) 55.6 % (50.0-75.0) 05/08/18 03:29 Lymph % (Auto) 30.0 % (20.0-40.0) 05/08/18 03:29 [place] % (Auto) 6.7 % (0.0-10.0) 05/08/18 03:29 Eos % (Auto) 6.8 % (0.0-4.0) H 05/08/18 03:29 Baso % (Auto) 0.9 % (0.0-2.0) 05/08/18 03:29 Neut # (Auto) 5.4 K/uL (1.8-7.0) 05/08/18 03:29 Lymph # (Auto) 2.9 K/uL (1.0-4.3) 05/08/18 03:29 [place] # (Auto) 0.7 K/uL (0.0-0.8) 05/08/18 03:29 Eos # (Auto) 0.7 K/uL (0.0-0.7) 05/08/18 03:29 Baso # (Auto) 0.1 K/uL (0.0-0.2) 05/08/18 03:29 Differential Comment 05/06/18 19:59 Retic Count 1.5 % (0.5-1.5) D 05/09/18 07:12 PT 12.0 SECONDS (9.7-12.2) 05/06/18 19:59 INR 1.1 05/06/18 19:59 APTT 86 SECONDS (21-34) H D 05/08/18 03:29 Sodium 139 mmol/L (132-148) 05/09/18 07:12 Potassium 3.9 mmol/L (3.6-5.2) 05/09/18 07:12 Chloride 106 mmol/L (98-107) 05/09/18 07:12 Carbon Dioxide 28 mmol/L (22-30) 05/09/18 07:12 Anion Gap 9 (10-20) L 05/09/18 07:12 BUN 15 mg/dL (7-17) 05/09/18 07:12 Creatinine 1.0 mg/dL (0.7-1.2) 05/09/18 07:12 Est GFR ( Amer) > 60 05/09/18 07:12 Est GFR (Non-Af Amer) > 60 05/09/18 07:12 Random Glucose 103 mg/dL (65-105) 05/09/18 07:12 Hemoglobin A1c 6.4 % (4.2-6.5) 05/07/18 13:58 Calcium 8.6 mg/dl (8.6-10.4) 05/09/18 07:12 Iron 17 ug/dL (37-170) L 05/09/18 07:12 TIBC 348 ug/dL (250-450) 05/09/18 07:12 % Saturation 5 (20-55) L 05/09/18 07:12 Transferrin 239.83 mg/dL (206-381) 05/09/18 07:12 Ferritin 4.7 ng/mL 05/09/18 07:12 Total Bilirubin 0.2 mg/dL (0.2-1.3) 05/09/18 07:12 AST 19 U/L (14-36) 05/09/18 07:12 ALT 21 U/L (9-52) 05/09/18 07:12 Alkaline Phosphatase 63 U/L (38-126) 05/09/18 07:12 Total Creatine Kinase 99 U/L (30-135) 05/07/18 18:15 CK-MB (Mass) 1.73 ng/mL (0.0-3.38) 05/07/18 18:15 Troponin I 0.1720 ng/mL (0.00-0.120) H* 05/07/18 18:15 NT-Pro-B Natriuret Pep 205 pg/mL (0-450) 05/06/18 19:59 Total Protein 6.6 g/dL (6.3-8.3) 05/09/18 07:12 Albumin 3.6 g/dL (3.5-5.0) 05/09/18 07:12 Globulin 3.0 gm/dL (2.2-3.9) 05/09/18 07:12 Albumin/Globulin Ratio 1.2 (1.0-2.1) 05/09/18 07:12 Triglycerides 165 mg/dL (0-149) H 05/07/18 13:58 Cholesterol 139 mg/dL (0-199) 05/07/18 13:58 LDL Cholesterol Direct 88 mg/dL (0-129) 05/07/18 13:58 HDL Cholesterol 30 mg/dL (30-70) 05/07/18 13:58 Vitamin B12 355 pg/mL (239-931) 05/09/18 07:12 Folate 8.4 ng/mL 05/09/18 07:12 TSH 3rd Generation 1.45 mIU/L (0.46-4.68) 05/06/18 21:40 Beta HCG, Quant < 2.39 mIU/ML 05/08/18 03:29 Urine Color Colorless (YELLOW) 05/06/18 20:30 Urine Clarity Clear (Clear) 05/06/18 20:30 Urine pH 7.0 (5.0-8.0) 05/06/18 20:30 Ur Specific [place] 1.004 (1.003-1.030) 05/06/18 20:30 Urine Protein 1+ mg/dL (NEGATIVE) H 05/06/18 20:30 Urine Glucose (UA) Normal mg/dL (Normal) 05/06/18 20:30 Urine Ketones Negative mg/dL (NEGATIVE) 05/06/18 20:30 Urine Blood 2+ (NEGATIVE) H 05/06/18 20:30 Urine Nitrate Negative (NEGATIVE) 05/06/18 20:30 Urine Bilirubin Negative (NEGATIVE) 05/06/18 20:30 Urine Urobilinogen Normal mg/dL (0.2-1.0) 05/06/18 20:30 Ur Leukocyte Esterase Neg [place]/uL (Negative) 05/06/18 20:30 Urine WBC (Auto) 3 /hpf (0-5) 05/06/18 20:30 Urine RBC (Auto) 18 /hpf (0-3) H 05/06/18 20:30 Ur Squamous Epith Cells 1 /hpf (0-5) 05/06/18 20:30 Urine HCG, Qual Negative (NEGATIVE) 05/06/18 20:30 - Hospital Course Hospital Course: Patient is a 42 year old female with a past medical history of hypertension and hypercholesterolemia presents to the hospital reporting palpitations that begin prior to coming into the hospital. Plan: New onset Atrial fibrillation S/P VAN with cardioversion Started on Cardizem 120mg PO daily Start on Xarelto 20mg PO daily Continue Aspirin 81 mg PO daily, Coreg 6.25mg PO BID Cardiology on consult, Dr Licona, help appreciated NSTEMI S/P Cardiac catherization - normal coronaries EKG on admission:afib @137bpm Nonspecific Changes EKG with elevated troponin : afib @81bpm Cardiology on consult, Dr Licona, help appreciated Hypertension Continue Hydralazine 25mg PO TID Continue Lisinopril 20 mg PO DAILY Hypercholesterolemia Continue Rosuvastatin 2.5 mg PO HS Impaired Glucose Tolerance A1C 6.4 on admission Patient to be counselled on diet modification and exercise Anemia Patient is iron deficient Started on Ferrous sulfate 325mg PO daily, and Colace 100mg PO daily Patient reports having heavy menstrual periods, has not seen a CARBON COATER MACHINE OPERATOR in "many" years Recommending CARBON COATER MACHINE OPERATOR outpatient for follow up PPX -GI ppx not indicated at this time. Discharge Exam - Head Exam Head Exam: ATRAUMATIC, NORMAL INSPECTION, NORMOCEPHALIC Discharge Plan - Discharge Medications Prescriptions: hydrALAZINE [Apresoline] 25 mg PO TID #90 tab Aspirin [Aspirin Chewable] 81 mg PO ONCE #30 chew [id number] CD [Cardizem CD] 120 mg PO DAILY #30 cap Docusate [Colace] 100 mg PO DAILY #30 cap Carvedilol [Coreg] 6.25 mg PO BID #60 tab Ferrous Sulfate [Feosol] 325 mg PO DAILY #30 tab Lovastatin 20 mg PO DAILY #30 tablet Rivaroxaban [Xarelto] 20 mg PO DAILY #30 tab Lisinopril [Zestril] 20 mg PO DAILY #30 tab - Follow Up Plan Condition: FAIR Disposition: HOME/ ROUTINE Instructions: Sleep Study, Heart Healthy Diet, Smoking: Not Just Harmful to Your Lungs and Heart, Rivaroxaban, Atrial Fibrillation (DC), High Blood Pressure (DC), Chest Pain (DC), Quitting Smoking, Aspirin, Carvedilol, Diltiazem, Docusate, Ferrous Sulfate, Hydralazine, Lisinopril, Lovastatin Additional Instructions: Patient is cleared for discharge home Please continue medications as prescribed Please follow up with Dr Licona within 2 weeks Please follow up with Dr Puja Delvalle within 1 week We recommend that you see Dr Blair (Engraving Patternmaker) for possible sleep study If symptoms worsen, return to the emergency department Por favor contine los medicamentos segn lo prescrito Por favor maral un seguimiento con el Dr. Licona dentro de 2 semanas. Por favor maral un seguimiento con el Dr. Puja Delvalle dentro de 1 semana Le recomendamos que consulte al Dr. Blair (neuogo) para un posible estudio del sueo. Si los sntomas empeoran, vuelva al servicio de urgencias. Referrals: Peter Blair MD [Staff Provider] - Royer Licona MD [Staff Provider] - Vinay Delvalle MD [Staff Provider] -
== END 2018-05-09 15:52 | disposition home or self-care (01) | DRG 544 ==
LOC: C.ER 19:33 → C.9E 21:28 → C.5S 22:24 → C.9I 05-08 09:47 → C.5S 05-08 09:54
PROVIDERS: ADMIT Internal Medicine Nephrology; ATTEND Internal Medicine Nephrology
PROC: 5A2204Z Restoration of Cardiac Rhythm, Single (ICD-10-PCS; principal; 2018-05-08)
PROC: B24BZZ4 Ultrasonography of Heart with Aorta, Transesophageal (ICD-10-PCS; 2018-05-08)
PROC: 4A023N7 Measurement of Cardiac Sampling and Pressure, Left Heart, Percutaneous Approach (ICD-10-PCS; 2018-05-08)
PROC: B2111ZZ Fluoroscopy of Multiple Coronary Arteries using Low Osmolar Contrast (ICD-10-PCS; 2018-05-08)
PROC: B2151ZZ Fluoroscopy of Left Heart using Low Osmolar Contrast (ICD-10-PCS; 2018-05-08)
DX: I48.91 Unspecified atrial fibrillation (principal); I50.32 Chronic diastolic (congestive) heart failure; I11.0 Hypertensive heart disease with heart failure; I25.10 Atherosclerotic heart disease of native coronary artery without angina pectoris; E66.01 Morbid (severe) obesity due to excess calories; D64.9 Anemia, unspecified; I95.81 Postprocedural hypotension; E78.00 Pure hypercholesterolemia, unspecified; R31.21 Asymptomatic microscopic hematuria; F17.210 Nicotine dependence, cigarettes, uncomplicated; Z90.49 Acquired absence of other specified parts of digestive tract; R73.03 Prediabetes